=== PATIENT | female | born 1970 | race Caucasian/White ===

== ENCOUNTER 2022-05-14 10:44 | Outpatient (CLI) | payer BC, SELFPAY ==
[2022-05-14 14:34] LABS: Chloride* 100 mmol/L (96-114); Potassium* 4.1 mmol/L (3.6-5.1); Sodium* 137 mmol/L (135-149)
[2022-05-14 14:36] LABS: Cholesterol* 142 mg/dL (90-199)
[2022-05-14 14:37] LABS: Blood Urea Nitrogen* 22 mg/dL (7-30); Calcium* 9.2 mg/dL (8.4-10.6); Carbon Dioxide* 29 mmol/L (20-32); Creatinine* 1.1 mg/dL (0.5-1.5); Estimated Glomerular Filt Rate 60 ml/min; Glucose* 84 mg/dL (60-115); HDL Cholesterol* 62 mg/dL (>=50); LDL Cholesterol Calculated 71 mg/dL (<100); Triglycerides* 47 mg/dL (40-149)
== END 2022-05-14 10:45 | disposition home or self-care (01) ==
PROVIDERS: PCP Physician Assistant Medical; Visit Provider Physician Assistant Medical
DX: Z00.00 Encounter for general adult medical examination without abnormal findings (principal); N28.9 Disorder of kidney and ureter, unspecified; Z13.6 Encounter for screening for cardiovascular disorders
CPT/HCPCS: 80048; 80061; 87086

== ENCOUNTER 2022-07-13 08:10 | Outpatient (CLI) | payer BC, SELFPAY ==
--- NOTE | 2022-07-13 08:15 | CRLHL7_ITS ---
For Patients: As a result of the Century Cures Act, medical imaging exams and procedure reports are released immediately into your electronic medical record. You may view this report before your referring provider. If you have questions, please contact your health care provider. BILATERAL SCREENING MAMMOGRAM WITH COMPUTER-AIDED DETECTION AND TOMOSYNTHESIS TECHNIQUE: CC, MLO and Implant-displaced views were obtained. These mammographic images have been obtained using full-field digital technique. These mammographic images were interpreted with the benefit of computer-aided detection. Breast Tomosynthesis was used in this interpretation. COMPARISON FILM: 03/04/21, 02/09/20, 01/27/19. FINDINGS: The breasts are heterogeneously dense, which may obscure small masses IMPRESSION: There is no radiographic evidence for malignancy. ASSESSMENT: BI-RADS Category 2: Benign RECOMMENDATION: Routine screening mammogram in 1 year. A lay language report of this examination will be provided to the patient. Tone Hill M.D. Diagnostic Radiologist [email or web address] Transcribed: 2:47 p.priscilla stuart/Dictated by: Tone Hill MD @ 07/13/2022 12:18:00 PM (Electronically Signed)
== END 2022-07-13 08:11 | disposition home or self-care (01) ==
LOC: MAMMO 08:11
PROVIDERS: PCP Physician Assistant Medical; Visit Provider Registered Nurse
DX: Z12.31 Encounter for screening mammogram for malignant neoplasm of breast (principal); R92.2 Inconclusive mammogram
CPT/HCPCS: 77063; 77067

== ENCOUNTER 2023-11-19 13:13 | Outpatient (CLI) | payer BC, SELFPAY ==
--- OUTSIDE RECORDS SUMMARY | 2023-11-19 13:17 | XMS_ITS | Continuity of Care Document ---
Author Name Unknown Organization [facility] Address [address] [address] [place] [address] Phone Care Team Providers Care Patient Care Manager Name Role Phone Nhan Teran MD Unavailable Unavailable Advance Directives Directive Yes / No Effective Date File Name No Information Encounters Encounter Description Practice Location Reason(s) For Visit Diagnoses Date Provider Providers Copied on Encounter [facility], [address] [address], [place], [place], [id number], [place] tel:[phone] [facility] No Information Parul Justin. [address] [facility], [facility] [address], [place], [place], [id number], [place]. tel:[phone] Family History Family Member Type Diagnosis Age At Onset No Information Payers Payer name Insurance type Covered republican ID Authoriza tion(s) No Information Social History Type Description Quantity Date Captured Comments Sex Female Smoking Status No Information Chief Complaint And Reason For Visit No Information Reason For Referral Reason For Referral No Information History Of Present Illness Encounter Date Complaint History Of Prese nt Illness No Information Functional Status Date Functional Assessmen t No Information Instructions Date Instruction Additional Infor mation No Information Assessments Type Assessment Date No Information Patient Care Teams Name Effective Dates (start - stop) Status Members No Information
--- OUTSIDE RECORDS SUMMARY | 2023-11-19 13:17 | XMS_ITS | Data Portability ---
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 I also reviewed patients systemic health history, social and personal history and current medications and the complete documentation of the same is available for review in the patient's electronic health record. Based on the evaluation today, I do consider patient's symptoms to be consistent for a Temporomandibular joint disorder diagnosis Contributing factors identified and discussed include oral parafunctional habits, postural factors, coping with elevated stress. A panoramic radiograph was obtained in the office today and finding on the radiograph was discussed with the patient. This screening imaging revealed Bilateral TMJ adaptive remodeling. Overall, the dento-alveolar tissue appeared WNL. I reviewed some self care strategies with the patient today. This included the use of moist-heat therapy on a regular basis, eating a soft diet and chewing bilaterally simultaneously. the technique in keeping the jaw relaxed at all times with the teeth apart and tongue resting on the roof of the mouth was demonstrated and discussed. Patient was also educated on the significance of compliance to self-care today. I recommended evaluation and treatment with a physical therapist to improve pain-free range of motion and function. Physical therapy strategies of exercises and modalities and the value of those were discussed with the patient. Patient has an existing splint which I have encouraged her to continue using at this time. The focus with PT will be to improve pain-free ROM on the right side TMJ which appears to be chronic closed lock status with the left side having some ligament laxity concerns making it susceptible to joint instability. A prescription for Methocarbamol 500 mg two tablets at bedtime, was provided to the patient today. The risks and benefits associated with the prescribed medication was discussed with the patient today. Patient was asked to discontinue medication intake and return to clinic of significant side effects were noted from the medication. Total visit time 45 minutes. I spent 35 minutes on counselling and co-ordination of care. Not available 04/11/2018 14:15:30 04/27/2018 04/27/2018 Symptoms are consistent with TMD diagnoses. Patient is moderate complexity with 2 personal factors/comorbiditi es affecting the plan of care, moderate complexity decision making and an evolving clinical presentation. Examination yields 4+ affected structures, participation restrictions and/or functional limitations. The patient will benefit from PT to decrease pain and increase function with chewing, opening, yawning and tolerating dental work. Contributing factors include ligament laxity, muscle guarding, oral habits, stress and forward head posture. Treatment will include exercises to release muscle tension and increase strength and stability. Modalities to be used may include manual therapy, ultrasound and electrical stimulation. Frequency will be 1x/1-2 weeks for 6-8 weeks, tapering as able for a total of 8-12 visits over 3 months. Short term goals to be met in 4-6 weeks include: *Improve patient's awareness of muscle tension and muscle guarding habits to decrease pain. *Improve patient's awareness of neutral head, neck and jaw position to improve posture. *Improve patient's awareness of proper sleep positioning and ergonomics to decrease joint and muscle strain. *Improve jaw ROM to 30 mm IO and 5-7 mm lateral excursion without deviation, noise or increased pain due to improved jaw control. *Decrease pain and noise level by 50% due to improved muscle tension release and joint protection group home goals to be met in 3 months include: *Neutral head, neck and jaw posture 80% of the time to decrease postural muscle jaw strain *Improve jaw ROM to 35-40 mm IO and 7-10 mm lateral excursion without deviation, noise or pain to tolerate wide opening to yawn with ease *Decrease pain and noise level by 90% due to improved muscle stabilization and control with ADLs *Tifton with HEP and self care strategies to manage symptoms and discharge PT. *Pain free chewing with moderately hard diet 80% of the time due to improved jaw muscle endurance and control. sheri Not available 05/02/2018 14:09:41 05/04/2018 05/04/2018 Adjusted exercis es to ensure proper performance and avoid straining muscles. Did B US today for muscle release before manual work and joint mobilizations. Added tube work and isometric resistance to improve jaw control. Continue with all goals. Short term goals to be met in 4-6 weeks include: *Improve patient's awareness of muscle tension and muscle guarding habits to decrease pain. *Improve patient's awareness of neutral head, neck and jaw position to improve posture. *Improve patient's awareness of proper sleep positioning and ergonomics to decrease joint and muscle strain. *Improve jaw ROM to 30 mm IO and 5-7 mm lateral excursion without deviation, noise or increased pain due to improved jaw control. 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 *Pain free chewing with moderately hard diet 80% of the time due to improved jaw muscle endurance and control. sheri Not available 05/10/2018 13:51:08 05/20/2018 05/20/2018 I reinforced the self-care strategies and encouraged compliance with those. She was requested to bring her splint in for review to evaluate the effectiveness of the appliance. I reviewed outcomes with PT visits and discussed care with the PT provider. I reviewed the need for compliance with home exercises. I discussed medication management and she may take 500 mg of Methocarbamol in the daytime and 500 mg at bedtime to see if the effectiveness of the medication can be altered to gain daytime benefits with symptoms. Total visit time 20 minutes. I spent 15 minutes on counselling and co-ordination of care. Not available 05/20/2018 16:22:03 05/20/2018 05/20/2018 Restriction seem s to be more pterygoid-based today. Emphasized the importance of consistent heat use to relax the muscles; also encouraged intraoral ice to decrease pterygoid activation. Empty end feel with PROM opening (with fingers) - encouraged scissors stretch with breathing cue to release and stretch. Continue with jaw control exercises. Continue with all goals. Per Dr. Larry - consider ionto if pain continues with biting down. Short term goals to be met in 4-6 weeks include: *Improve patient's awareness of muscle tension and muscle guarding habits to decrease pain. *Improve patient's awareness of neutral head, neck and jaw position to improve posture. *Improve patient's awareness of proper sleep positioning and ergonomics to decrease joint and muscle strain. *Improve jaw ROM to 30 mm IO and 5-7 mm lateral excursion without deviation, noise or increased pain due to improved jaw control. 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 *Pain free chewing with moderately hard diet 80% of the time due to improved jaw muscle endurance and control. sheri Not available 05/20/2018 15:32:12 06/01/2018 06/01/2018 Gave resisted open/close for functional training. Much better ROM after TPR R intra and extra oral pterygoids and ice followed by scissors stretching. ROM improving overall with 35-38 mm opening after therapy. Add ionto next for the R TMJ per Dr. Larry. Continue with all goals. Short term goals to be met in 4-6 weeks include: *Improve patient's awareness of muscle tension and muscle guarding habits to decrease pain. *Improve patient's awareness of neutral head, neck and jaw position to improve posture. *Improve patient's awareness of proper sleep positioning and ergonomics to decrease joint and muscle strain. *Improve jaw ROM to 30 mm IO and 5-7 mm lateral excursion without deviation, noise or increased pain due to improved jaw control. 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 *Pain free chewing with moderately hard diet 80% of the time due to improved jaw muscle endurance and control. [email or web address] Not available 06/01/2018 17:44:01 06/08/2018 06/08/2018 I reinforced the self-care strategies and encouraged compliance with those. Splint fit was reviewed and Adjustments were made to the splint to improve fit and occlusal comfort. No further changes recommended with splint therapy at this time. Patient is encouraged to continue with multidisciplinary approach to her symptom management. Total visit time 20 minutes. I spent 15 minutes on counselling and co-ordination of care. Not available 06/15/2018 11:20:06 06/08/2018 06/08/2018 Did ionto R TMJ today - straighter opening after therapy. Good R TMJ mobility with distraction after ionto. Continue 1x/wk for 6 total sessions with increasing ionto dosage. Continue with all goals. Short term goals to be met in 4-6 weeks include: *Improve patient's awareness of muscle tension and muscle guarding habits to decrease pain. *Improve patient's awareness of neutral head, neck and jaw position to improve posture. *Improve patient's awareness of proper sleep positioning and ergonomics to decrease joint and muscle strain. *Improve jaw ROM to 30 mm IO and 5-7 mm lateral excursion without deviation, noise or increased pain due to improved jaw control. 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 *Pain free chewing with moderately hard diet 80% of the time due to improved jaw muscle endurance and control. [email or web address] Not available 06/08/2018 17:47:15 06/15/2018 06/15/2018 Did ionto again R TMJ today with ice - Continue 1x/wk for 6 total sessions with increasing ionto dosage next visit. Continue with all goals. Short term goals to be met in 4-6 weeks include: *Improve patient's awareness of muscle tension and muscle guarding habits to decrease pain. *Improve patient's awareness of neutral head, neck and jaw position to improve posture. *Improve patient's awareness of proper sleep positioning and ergonomics to decrease joint and muscle strain. *Improve jaw ROM to 30 mm IO and 5-7 mm lateral excursion without deviation, noise or increased pain due to improved jaw control. 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 *Pain free chewing with moderately hard diet 80% of the time due to improved jaw muscle endurance and control. [email or web address] Not available 06/15/2018 18:02:33 06/22/2018 06/22/2018 Did ionto again R TMJ today with ice - Continue 1x/wk for 6 total sessions with increasing ionto dosage next visit. Continue with all goals. Reviewed joint protection. Short term goals to be met in 4-6 weeks include: *Improve patient's awareness of muscle tension and muscle guarding habits to decrease pain. *Improve patient's awareness of neutral head, neck and jaw position to improve posture. *Improve patient's awareness of proper sleep positioning and ergonomics to decrease joint and muscle strain. *Improve jaw ROM to 30 mm IO and 5-7 mm lateral excursion without deviation, noise or increased pain due to improved jaw control. *Decrease pain and noise level by 50% due to improved muscle tension release and joint protection group home goals to be met in 3 months include: *Neutral head, neck and jaw posture 80% of the time to decrease postural muscle jaw strain *Improve jaw ROM to 35-40 mm IO and 7-10 mm lateral excursion without deviation, noise or pain to tolerate wide opening to yawn with ease *Decrease pain and noise level by 90% due to improved muscle stabilization and control with ADLs *Tifton with HEP and self care strategies to manage symptoms and discharge PT. *Pain free chewing with moderately hard diet 80% of the time due to improved jaw muscle endurance and control. [email or web address] Not available 06/22/2018 13:53:18 07/12/2018 07/12/2018 Did ionto again R TMJ today with ice - Continue 1x/wk for 6 total sessions with increasing ionto dosage next visit. Continue with all goals. Short term goals to be met in 4-6 weeks include: *Improve patient's awareness of muscle tension and muscle guarding habits to decrease pain. *Improve patient's awareness of neutral head, neck and jaw position to improve posture. *Improve patient's awareness of proper sleep positioning and ergonomics to decrease joint and muscle strain. *Improve jaw ROM to 30 mm IO and 5-7 mm lateral excursion without deviation, noise or increased pain due to improved jaw control. 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 *Pain free chewing with moderately hard diet 80% of the time due to improved jaw muscle endurance and control. [email or web address] Not available 07/12/2018 17:37:58 07/19/2018 07/19/2018 Did ionto again R TMJ today with ice, added TD stretching. Emphasized the importance of finger/knuckle stretching 4-6x/day and adding TD stretching with heat daily. RTC in 1 week to reassess; consider checking back in with Dr. Larry as well. Continue with all goals; intermittently meets STGs. Short term goals to be met in 4-6 weeks include: *Improve patient's awareness of muscle tension and muscle guarding habits to decrease pain. *Improve patient's awareness of neutral head, neck and jaw position to improve posture. *Improve patient's awareness of proper sleep positioning and ergonomics to decrease joint and muscle strain. *Improve jaw ROM to 30 mm IO and 5-7 mm lateral excursion without deviation, noise or increased pain due to improved jaw control. 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 *Pain free chewing with moderately hard diet 80% of the time due to improved jaw muscle endurance and control. sheri Not available 07/19/2018 17:37:02 07/26/2018 07/26/2018 ROM improved tod ay and patient reports that pain has been better in the last week. Overall today patient reports that she has met all short term goals. 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 Finished 6 ionto sessions with some improvement - patient will see Dr. Schaefer (transitioning care as Dr. Larry is leaving) to discuss POC. RTC as directed to continue with jail goals; may benefit from 6 more ionto sessions. Short term goals to be met in 4-6 weeks include: *Improve patient's awareness of muscle tension and muscle guarding habits to decrease pain. *Improve patient's awareness of neutral head, neck and jaw position to improve posture. *Improve patient's awareness of proper sleep positioning and ergonomics to decrease joint and muscle strain. *Improve jaw ROM to 30 mm IO and 5-7 mm lateral excursion without deviation, noise or increased pain due to improved jaw control. 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 *Pain free chewing with moderately hard diet 80% of the time due to improved jaw muscle endurance and control. sheri Not available 07/27/2018 10:11:54 09/26/2018 09/26/2018 Today I reviewed the diagnosis, contributing factors and treatment plan. I reinforced self-care strategies, home exercises and encouraged compliance. Daily home care was advised. I reviewed outcomes of care with physical therapy. I recommended continued care with home self-care. I discussed the patient's history and plan of action with the rendering team provider. She is using invisalign and NTI with full coverage appliance at night. Edna has been having neck pain now since 2-3 months which have not been evaluated previously. The pain is in atlas-axis region. I am recommending her to consult Pricila Rogers for neck evaluation. Today's total visit time was 25 minutes of which I spent 15 minutes on counselling and coordination of care. This may have included a review of diagnoses, contributing factors, home self-management, treatment plan, past diagnostic tests, reasonable expectations and limitations. [email or web address] Not available 09/30/2018 15:59:43 11/10/2018 11/10/2018 Edna is a pleasant 48 yo who is referred by Dr. Xavier for chronic neck pain and headaches that began gradually years ago. 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 [email or web address] Not available 11/10/2018 10:28:37 12/05/2018 12/05/2018 Improved jaw ROM overall. Will adjust PT focus to deep flexor stabilization and postural work to address her neck pain, TORRE and lack of cervical stabilization. Recommended heat on the neck in addition to the new stabilization exercises today. Adjusted goals as listed below to reflect the shift in priorities; patient has met all short term goals for the jaw. RTC as able - discuss transferring care to [facility], due to PT schedule changes upcoming. Short term goals to be met in 3-4 weeks include: *Improve patient's awareness of muscle tension and muscle guarding habits to decrease neck pain. *Improve patient's awareness of neutral head, neck and jaw position to improve posture. *Improve patient's awareness of proper sleep positioning and ergonomics to decrease joint and muscle strain. *Decrease TORRE pain by 50% due to improved muscle tension release and joint protection group home goals to be met in 3 months (may need to continue with a different PT) include: *Neutral head, neck and jaw posture 80% of the time to decrease postural muscle jaw strain *Improve cervical ROM to min to no limitation in all directions due to improved stabilization and decreased muscle tension. *Decrease neck and TORRE pain by 90% due to improved muscle stabilization and control with ADLs *Tifton with HEP and self care strategies to manage symptoms and discharge PT. sheri Not available 12/07/2018 11:25:52 12/15/2018 12/15/2018 Progressed deep flexor with with BPU using graded training. Went over sleep position, added foam roll stretch for suboccipital work. Reports feeling looser after manual release suboccipital and cervical paraspinal mm. RTC once more able - discuss transferring care to [facility], due to PT schedule changes upcoming. Goal review next. Short term goals to be met in 3-4 weeks include: *Improve patient's awareness of muscle tension and muscle guarding habits to decrease neck pain. *Improve patient's awareness of neutral head, neck and jaw position to improve posture. *Improve patient's awareness of proper sleep positioning and ergonomics to decrease joint and muscle strain. 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 *Decrease neck and TORRE pain by 90% due to improved muscle stabilization and control with ADLs *Tifton with HEP and self care strategies to manage symptoms and discharge PT. [email or web address] Not available 12/15/2018 13:32:36 12/27/2018 12/27/2018 Improving deep flexor endurance and control, though she continues to have fatigue and muscle tension. Added marching with PBU feedback for control. Also added cervical stretches with adjustments to isolate muscle tension in different areas. TORRE are much better. 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 Short term goals to be met in 3-4 weeks include: *Improve patient's awareness of muscle tension and muscle guarding habits to decrease neck pain. *Improve patient's awareness of neutral head, neck and jaw position to improve posture. *Improve patient's awareness of proper sleep positioning and ergonomics to decrease joint and muscle strain. 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 *Decrease neck and TORRE pain by 90% due to improved muscle stabilization and control with ADLs *[place] with HEP and self care strategies to manage symptoms and discharge PT. [email or web address] Not available 12/27/2018 19:12:52 Plan of Treatment Reminders Order Date Submit Date Provider Last Modified By Organization Details Last Modified Time Details Appointments None recorded. Lab None recorded. Referral mid-level referral 2018 019 [email or web address] Not available 9 15:59:19 physical therapist referral 2017 018 [place], Pravin Michel [facility], [address], [address], 8 16:30:27 Procedures None recorded. Surgeries None recorded. Imaging XR, orthopanto gram 2017 018 [place] Conn, [address], [place], [address], 8 16:32:16 Medication Orders methocarba mol 500 mg tablet 2017 018 [id number], [address] [place], [address], 8 11:46:48 methocarba mol 500 mg tablet 2017 018 [id number], [address] [place], [address], 14:15:34 Patient TargetsNo targets recorded. Patient Instructions Encounter Date Encounter Id Patient Instructions Last Modified By Organization Details Last Modified Time 12/27/2018 [id number] Plan: Progress deep flexor and scapular stabilization with pressure biofeedback, and dynamic LE progression. Consider cervical spine mobilizations if indicated; assess further in the future. Patient will transition to new PT (likely will review goals and reset them as needed next). [email or web address] Not available 12/27/2018 19:13:48 12/15/2018 [id number] Plan: Progress deep flexor and scapular stabilization with pressure biofeedback, adding TA work if needed and neck stretching as needed. Consider cervical spine mobilizations if indicated; assess further in the future. [email or web address] Not available 12/15/2018 10:04:12 12/05/2018 [id number] Plan: Progress deep flexor and scapular stabilization with pressure biofeedback, adding TA work if needed and neck stretching as needed. Consider cervical spine mobilizations if indicated; assess further in the future. [email or web address] Not available 12/07/2018 11:26:41 07/26/2018 [id number] Plan: Discuss [facility] TMJ specialist regarding POC. Consider 6 more ionto sessions? [email or web address] Not available 07/27/2018 10:12:10 07/19/2018 [id number] Plan: continue with ionto R TMJ, check TD stretch, return to joint mobilizations if needed. Progress exercises as able, review POC (with Dr. Larry as needed). [email or web address] Not available 07/19/2018 17:37:31 07/12/2018 [id number] Plan: continue with ionto R TMJ, return to mobilizations and progress exercises as able. [email or web address] Not available 07/12/2018 17:36:08 06/22/2018 [id number] Plan: continue with ionto R TMJ, return to mobilizations and progress exercises as able. [email or web address] Not available 06/22/2018 13:53:37 06/15/2018 [id number] Plan: continue with ionto R TMJ ekahnert Not available 06/15/2018 18:02:41 06/08/2018 [id number] Self Care for TMD Not availab le 06/15/2018 11:20:34 06/08/2018 [id number] Plan: Continue R TMJ ionto with increasing dosage, continue with joint distraction as well. [email or web address] Not available 06/08/2018 17:47:46 06/01/2018 [id number] Plan: R TMJ iont o next, continue intraoral work and scissors stretch as needed. [email or web address] Not available 06/01/2018 17:44:18 05/20/2018 [id number] Plan: Continue with B US and MFR followed by intraoral work (vs. mobilizations) if helpful. Check #6A and tube ex for control. Continue with muscle focus (pterygoids) vs. joint - though ok to try ionto if indicated. [email or web address] Not available 05/20/2018 15:32:45 05/04/2018 [id number] Plan: Continue with B US and MFR followed by mobilizations if helpful. Check #6A and tube ex for control. Progress postural exercises, add cervical stretches eventually Go over sleep position next. [email or web address] Not available 05/10/2018 13:51:33 04/27/2018 [id number] Plan: Continue with US (consider B US next) and MFR if helpful. Add #6A, tube ex for control. Progress postural exercises, add cervical stretches eventually Go over sleep position next. [email or web address] Not available 05/02/2018 14:08:43 04/11/2018 [id number] Self Care for TMD Not availab le 04/11/2018 14:15:27 Reason for Referral Physical Therapist Referral for Articular disc disorder of temporomandibular joint Referring Physician: [facility], [phone] Encounter Date: 04/11/2018 Mid-level Referral for Neck pain Referring Physician: [facility], Encounter Date: 09/26/2018 Results Created Date Observation Date Name Description Value Unit Range Abnormal Flag LastModifiedBy Organization Detail LastModifiedTime 04/11/20 18 XR, ortho panto gram No observ ation record ed. Not Available 04/28/2018 16:30:09 Result Notes None recorded. 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 Janice carrillo [facility] 8 13:58:41 Myofascial pain Active 2017 masticatory and cervical muscles [place], [place] [address] [facility] [address], [place], [address], [facility] 9 15:59:34 Arthralgia of temporomandibul ar joint Active 2017 Janice carrillo [facility] 8 13:59:33 Chronic neck pain Active 2018 Pricila Ken lorena [facility] 9 10:15:33 Chronic tension-type headache Active 2018 Pricila carrillo [facility] 9 10:15:47 Problem Notes None recorded. Procedures Surgical History Date Name Laterality Status Provider Name and Address Organization Details Recorded Time 12/28/19 19 42756: Therapeutic Exercise completed Lilo carrillo [facility] 12/27/2018 11:13:37 12/28/19 19 88250: Neuromuscular Re-Education completed Lilo carrillo [facility] 12/27/2018 11:13:37 12/16/19 19 82426: Therapeutic Exercise completed Lilo carrillo [facility] 12/15/2018 10:04:12 12/16/19 19 [id number]: Neuromuscular Re-Education completed Lilo carrillo [facility] 12/15/2018 10:04:12 12/06/19 19 88322: Therapeutic Exercise completed Lilo carrillo [facility] 12/05/2018 11:06:23 12/06/19 19 07621: Neuromuscular Re-Education completed Lilo carrillo [facility] 12/07/2018 11:19:38 07/26/19 19 88235: Iontophoresis completed Lilo carrillo [facility] 07/26/2018 17:00:45 07/26/19 19 28858: Therapeutic Exercise completed Lilo carrillo [facility] 07/26/2018 17:00:45 07/19/19 19 16458: Iontophoresis completed Lilo carrillo [facility] 07/19/2018 17:35:49 07/19/19 19 13087: Therapeutic Exercise completed Lilo carrillo [facility] 07/19/2018 17:35:43 07/12/19 19 22899: Iontophoresis completed Lilo carrillo [facility] 07/12/2018 17:36:07 06/22/20 18 08048: Iontophoresis completed Lilo carrillo [facility] 06/22/2018 13:53:02 06/15/20 18 01151: Iontophoresis completed Lilo carrillo [facility] 06/15/2018 18:01:05 06/08/20 18 20912: Iontophoresis completed Lilo carrillo [facility] 06/08/2018 10:55:56 06/08/20 18 81753: Therapeutic Exercise completed Lilo carrillo [facility] 06/08/2018 10:38:42 06/01/20 18 95115: Therapeutic Exercise completed Lilo carrillo [facility] 06/01/2018 10:42:33 06/01/20 18 80036: Manual Therapy completed Lilo carrillo [facility] 06/01/2018 10:42:33 05/20/20 18 70368: Ultrasound (1:1) completed Lilo carrillo [facility] 05/20/2018 10:41:15 05/20/20 18 15266: Therapeutic Exercise completed Lilo carrillo [facility] 05/20/2018 10:41:15 05/20/20 18 86401: Manual Therapy completed Lilo carrillo [facility] 05/20/2018 10:41:15 05/04/20 18 16781: Ultrasound (1:1) completed Lilo carrillo [facility] 05/05/2018 18:11:37 05/04/20 18 54506: Therapeutic Exercise completed Lilo carrillo [facility] 05/04/2018 10:34:33 05/04/20 18 96027: Manual Therapy completed Lilo carrillo [facility] 05/10/2018 13:50:05 04/27/20 18 16077 - PT Eval Moderate Complexity completed Lilo carrillo [facility] 04/27/2018 12:04:57 04/27/20 18 85464: Ultrasound (1:1) completed Lilo carrillo [facility] 05/02/2018 14:04:31 04/27/20 18 34234: Therapeutic Exercise completed Lilo carrillo [facility] 04/27/2018 12:04:57 Joint Replacement completed Sunny carrillo [facility] 04/11/2018 13:36:32 [place] Teeth Extraction completed Sunny carrillo [facility] 04/11/2018 13:36:41 Other completed Sunny carrillo [facility] 04/11/2018 13:36:53 ENT/Sinus Surgery completed Miky carrillo [facility] 04/11/2018 13:52:14 Imaging Results Imaging Date Name Status LastModified by Organization Details LastModified Time 04/11/2018 XR, orthopantogram completed Inform ation not available 04/28/2018 16:30:09 Procedure Notes None recorded. Medical Equipment None Reported. Allergies Allergen ID Allergen Name Allergen Category Reaction Reaction Severity Criticality Documentation Date Start Date Code Code System Note Provider Name and Address Organization Details Recorded Time 76447 codeine medicatio n Not available Not available Not available 04/11/2018 2670 RxDominic carrillo [facility] 8 13:32:03 73446 Erythroci n medicatio n Not available Not available Not available 04/11/2018 95383 3 James carrillo [facility] 8 13:32:36 Medications Name Sig Start Date Stop Date Status Note LastModified by Organization Details LastModified Time methocarbamo l 500 mg tablet TAKE 2 TABLETS BY MOUTH EVERY DAY AT BEDTIME active 9: pt. MAY try 3 tabs (750m g) at bedti me. Not Available Not Available Not Available valacyclovir 1 gram tablet active Not Available Not Available Not Available tramadol 50 mg tablet 09/26 completed Not Available Not Available Not Available ketorolac 10 mg tablet 09/26 completed Not Available Not Available Not Available cephalexin 500 mg capsule 09/26 completed Not Available Not Available Not Available gabapentin 300 mg capsule 09/26 completed Not Available Not Available Not Available hydroxyzine HCl 25 mg tablet 09/26 completed Not Available Not Available Not Available mupirocin 2 % topical ointment 09/26 completed Not Available Not Available Not Available methylpredni solone 4 mg tablets in a dose pack 09/26 completed Not Available Not Available Not Available celecoxib 100 mg capsule Take 1 capsule every day by oral route. 09/26 completed Not Available Not Available Not Available ondansetron 4 mg disintegrati ng tablet 09/26 completed Not Available Not Available Not Available doxycycline hyclate 100 mg tablet 09/26 completed Not Available Not Available Not Available oxycodone 5 mg tablet 09/26 completed Not Available Not Available Not Available hydroxyzine pamoate 25 mg capsule 09/26 completed Not Available Not Available Not Available [place] 3 active Not Available Not Avail able Not Available Hair,Skin and Nails active Not Available Not Available No t Available Vitals Date Recorded Body height Body mass index (BMI) Body weight Heart rate Systolic blood pressure Diastolic blood pressure Provider Name and Address Organization Details Last Updated DateTime 8 154.94 cm 20.2 kg/m2 49957.3 8 g 79 /min 120 mm[Hg] 80 mm[Hg] Sunny Pulido [facility] 8 13:31:00 Date Recorded Body height Provider Name an d Address Organization Details Last Updated DateTime 05/20/2018 154.94 cm Miky Hung [facility] 05/20/2018 11:28:49 Date Recorded Body height Provider Name an d Address Organization Details Last Updated DateTime 06/08/2018 154.94 cm Sunny Pulido [facility] 06/08/2018 11:07:37 Date Recorded Body height Systolic blood pressure Diastolic blood pressure Provider Name and Address Organization Details Last Updated DateTime 09/26/2018 154.94 cm 95 mm[Hg] 64 mm[Hg] Miky Hung [facility] 09/26/2018 12:23:29 Date Recorded Body height Body mass index (BMI) Body weight Heart rate Systolic blood pressure Diastolic blood pressure Provider Name and Address Organization Details Last Updated DateTime 9 154.94 cm 20.2 kg/m2 83759.3 8 g 76 /min 110 mm[Hg] 76 mm[Hg] Ruby Roach [facility] 9 09:20:00 Social History Question Answer Notes LastModified by Organizat ion Details LastModified Time Tobacco Smoking Status Never Smoker Sunny carrillo [facility] 04/11/2018 13:34:00 What Is Your Level Of Alcohol Consumption? Occasional Information not available 04/11/2018 Auto Related Injury? No Information not available 04/11/2018 What Is Your Level Of Caffeine Consumption? Moderate Information not available 04/11/2018 Are You Currently Employed? Yes Information not available 04/11/2018 Currently No Information not available 04/11/2018 What Type Of Diet Are You Following? 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 With Others Information not available 04/11/2018 Marital Status Informatio n not available 04/11/2018 What Number Best Describes Your Pain On Average In The Past Week? (0=no Pain, 10=pain As Bad As You Can Imagine) 8 Information not available 04/11/2018 What Number Best Describes How, During The Past Week, Pain Has Interfered With Your Enjoyment Of Life? (0=does Not Interfere, 10= Completely Interferes) 5 Information not available 04/11/2018 What Was The Date Of Your Most Recent Tobacco Screening? 11/10/2018 Information not available 01/26/2019 If Injured, Is Litigation Ongoing? No Information not available 04/11/2018 General Stress Level Medium Information not available 04/11/2018 Do You Use Any Illicit Or Recreational Drugs? No Information not available 04/11/2018 Work Related Injury? No Information not available 04/11/2018 Sex: Female Functional Status Question Answer Note LastModified by Organization D etails LastModified Time What is your exercise level? Heavy Information not available 04/11/2018 Mental Status None recorded. Family History Relationship Description Onset Age of this Age Resolved Age Notes Father Arthritis Medical History Condition Response Coronary Artery Disease N Other N Gout N Chronic fatigue syndrome N Hyperthyroidism N Premenstrual syndrome (PMS) N MRSA N Head Trauma/Injury N Emphysema N Irritable bowel syndrome N Glaucoma N Lung Disease N COPD N Hypothyroidism N Depression N Pneumonia N Pacemaker N Obstructive Sleep Apnea N Anxiety Disorder N Autoimmune disease N Muscle, Joint, or Bone Problems Y Vision or Eye Problems N Arthritis Y Serious Illness or Injuries N Acid Reflux (GERD) N Cancer N Stroke N Eating disorder N Neck Injury N Back Injury N High Cholesterol N History of chemotherapy N Neurologic Disorder N Liver Disease N Organ Transplant N Rheumatoid Arthritis N Headaches Y Fibromyalgia N Kidney Disease N Allergies/Hayfever Y Post traumatic stress disorder (PTSD) N Parkinson's Disease N Migraines N Brain Tumors N Anemia N Multiple Sclerosis N Immune System Disorder N Meningitis N Pancreatic disease N Heart Attack ([place]) N Stomach Ulcers N Back pain N Diabetes N Bleeding Disorder N Seizures/Epilepsy N Sjogren's syndrome N Tuberculosis N AIDS/HIV N History of radiation therapy N Hyperlipidemia N Dementia N Asthma N Physical or sexual abuse N Substance Abuse N Peripheral Vascular Disease N Psoriasis N Reflux/GERD N Mental Problems N Vertigo N Sleep Disorder N Aneurysm N Hepatitis N Heart Disease N Neuropathy N Pulmonary Embolism N Hypertension Y Osteoporosis N Gynecological HistoryNo gynecological history recorded. Obstetrics History GPAL:G 0 P 0 0 0 0 Immunizations Vaccine Type Date Status Provider Name and Address Organization Details Recorded Time influenza, injectable, quadrivalent 03/31/2018 completed [place] [facility] 04/11/2018 13:33:25 Past Encounters Encounter ID Performer Location Encounter Start Date Encounter Closed Date Diagnosis/Indication Diagnosis SNOMED-CT Code [id number] Janice Laron D[place] [address] [place] [address] 04/11/2018 13:05:43 04/11/2018 13:47:28 Arthralgia of temporomandibular joint 00942392 Articular disc disorder of temporomandibular joint 78526596 Myofascial pain 95631985 9 [id number] Lilo Bentley[address] [place] [id number] 04/27/2018 11:59:32 04/27/2018 17:36:11 Myofascial pain 707038834 Arthralgia of temporomandibular joint 26376631 Articular disc disorder of temporomandibular joint 34389012 [id number] Lilo Tai [address] [place] [address] 05/04/2018 10:28:22 05/04/2018 17:41:36 Myofascial pain 209048882 Arthralgia of temporomandibular joint 91470743 Articular disc disorder of temporomandibular joint 98665396 [id number] Lilo Huang [place] [address] [place], [place] [address] 05/20/2018 10:37:01 05/20/2018 15:23:50 Myofascial pain 962887147 Arthralgia of temporomandibular joint 04749854 Articular disc disorder of temporomandibular joint 15855530 [id number] Janice Laron DDS [place] [address] [place], [place] [address] 05/20/2018 10:37:01 05/20/2018 15:23:50 Myofascial pain 308712251 [id number] Lilo Huang [place] [address] [place] [address] 06/01/2018 10:36:10 06/01/2018 13:59:00 Myofascial pain 156842689 Arthralgia of temporomandibular joint 54169056 Articular disc disorder of temporomandibular joint 58444172 [id number] Lilo Huang [place] [address] [place] [id number] 06/08/2018 10:33:48 06/08/2018 15:32:25 Myofascial pain 933307942 Arthralgia of temporomandibular joint 44537448 Articular disc disorder of temporomandibular joint 25381499 [id number] Janice Laron DDS [place] [address] [place] [address] 06/08/2018 10:37:27 06/08/2018 14:50:21 Myofascial pain 640378698 Arthralgia of temporomandibular joint 36276418 Articular disc disorder of temporomandibular joint 91565064 [id number] Lilo Baughsuraj Gallegos e [address] [place] [address] 06/15/2018 13:28:43 06/15/2018 18:25:36 Myofascial pain 862925415 Arthralgia of temporomandibular joint 35472781 Articular disc disorder of temporomandibular joint 18917670 [id number] Lilo Huang [place] [address] [place] [address] 06/22/2018 13:31:55 06/22/2018 13:58:34 Myofascial pain 754233243 Arthralgia of temporomandibular joint 30969345 Articular disc disorder of temporomandibular joint 61623887 [id number] Lilo Huang [place] [address] [place] [id number] 07/12/2018 16:48:40 07/12/2018 17:47:34 Myofascial pain 091811426 Arthralgia of temporomandibular joint 52774454 Articular disc disorder of temporomandibular joint 12546721 [id number] Lilo Huang [place] [address] [place] [address] 07/19/2018 16:37:54 07/20/2018 08:11:38 Myofascial pain 192197675 Arthralgia of temporomandibular joint 23300414 Articular disc disorder of temporomandibular joint 69357097 [id number] Lilo Huang [place] [address] [place] [address] 07/26/2018 16:59:26 07/27/2018 10:29:05 Myofascial pain 608623269 Arthralgia of temporomandibular joint 94090889 Articular disc disorder of temporomandibular joint 95872422 [id number] ANICETO XAVIER BDS, [place] [address] [place] [address] 09/26/2018 12:04:31 09/26/2018 13:00:46 Myofascial pain 438890549 Arthralgia of temporomandibular joint 96532001 Articular disc disorder of temporomandibular joint 32286716 Neck pain 03010647 [id number] Pricila Ken [place] [address] [place] [address] 11/10/2018 09:02:55 11/10/2018 10:13:33 Myofascial pain 910976771 Chronic neck pain 573435 3126166 Chronic te nsion-type headache 101970089 [id number] Lilo Tai [address] [place] [address] 12/05/2018 11:02:45 12/05/2018 11:42:54 Myofascial pain 492840827 Chronic neck pain 083889 4222835 Chronic te nsion-type headache 392248110 [id number] Lilo Gallegos e [address] [place] [address] 12/15/2018 09:58:40 12/15/2018 11:27:18 Myofascial pain 940694957 Chronic neck pain 896393 8627413 Chronic te nsion-type headache 742041021 [id number] Lilo Gallegos e [address] [place] [address] 12/27/2018 11:10:06 12/27/2018 12:05:31 Myofascial pain 961034534 Chronic neck pain 421950 6987117 Chronic te nsion-type headache 760375871 Health Concerns Section Related Observation LastModified by Organization Detai ls LastModified Time None Recorded Concern Status LastModified by Organization Details LastModified Time None Recorded Advance Directives Directive None Recorded Payers Encounter Date Sequence Insurance Name Policy Number Policy Martinez Covered Member ID Martinez Member ID Guarantor Name 12/27/2018 1 [facility] [id number] Edna Wood [id number] Edna Wood 12/15/2018 1 [employer] [id number] Edna K Vanbellinger [id number] Edna Vanbellinger 12/05/2018 1 [employer] [id number] Edna K Vanbellinger [id number] Edna Vanbellinger 11/10/2018 1 [employer] [id number] Edna K Vanbellinger [id number] Edna Vanbellinger 09/26/2018 1 [employer] [id number] Edna K Vanbellinger [id number] Edna Vanbellinger 07/26/2018 1 [employer] [id number] Edna K Vanbellinger [id number] Edna Vanbellinger 07/19/2018 1 [employer] [id number] Edna K Vanbellinger [id number] Edna Vanbellinger 07/12/2018 1 [employer] [id number] Edna K Vanbellinger [id number] Edna Vanbellinger 06/22/2018 1 [employer] [id number] Edna K Vanbellinger [id number] Edna Vanbellinger 06/15/2018 1 [employer] [id number] Edna K Vanbellinger [id number] Edna Vanbellinger 06/08/2018 1 [employer] [id number] Edna K Vanbellinger [id number] Edna Vanbellinger 06/08/2018 1 [place] [id number] Edna K Vanbellinger [id number] Edna Vanbellinger 06/01/2018 1 [employer] [id number] Edna K Vanbellinger [id number] Edna Vanbellinger 05/20/2018 1 [employer] [id number] Edna K Vanbellinger [id number] Edna Vanbellinger 05/20/2018 1 [employer] [id number] Edna K Vanbellinger [id number] Edna Vanbellinger 05/04/2018 1 [employer] [id number] Edna K Vanbellinger [id number] Edna Vanbellinger 04/27/2018 1 [employer] [id number] Edna K Vanbellinger [id number] Edna [place] 04/11/2018 1 [employer] [id number] Edna Wood [id number] Edna Wood Notes Date Note Type Note Provider Name and Address Organization Details Recorded Time 04/11/2018 text/html HPI Notes: Patidave nt reports jaw pain on the right-side , which startedyears ago. The pain is located in the angle of the mandible region. Patient reports the severity of pain as 4-7 on a scale of 0-10 and describes the quality of the pain assharp, burning. The pain is recurrent. Associated symptoms include limited mouth opening,ear pain, headache, jaw jiont noises. Contextual factors include trauma. Aggravating factors include eating, teeth clenching, yawning. Patient has tried OTC meds -advil to alleviate symptoms, which has not been effective. Past treatment includes self-care. [facility] 04/11/2018 15:36:37 04/27/2018 text/html HPI Notes: Long history of R TMJ pain and restriction. The pain has flared in the last 1.5 years. Wears Invisalign retainer (has had it for 3 years) and an upper mouthguard every night. Aware of clicking the teeth together a lot, then had an incident waking while clenching hard about 1.5 years ago when the pain increased. Pain is constant and increases with activities - eating, yawning, chewing, wide opening, dental work, oral hygiene toward the back. Has been avoiding hard/crunchy/chewy foods. No other chewing habits - pain with chewing gum, so she hasn't done that for the last 1.5 months. Hasn't tried heat or ice, no change with the muscle relaxant since starting it after Dr. Larry's visit. Has one kidney. Takes Celebrex 1-2x/day for her knee. Was taking an OTC sleep aid (like Tylenol pm) which seemed to help her. Sleep is poor now because of the knee, and she feels that the poor sleep affects her jaw. Sleeping on her R side but she moves around a lot through the night. Neck is more sore and tired currently - has stiffness and tightness, difficulty with end range rotation. 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 Has 4 kids, including triplets (in 4th grade). Long history of clicking B. Some ear pain, TORRE tension in the B temples dull and daily. Goals include decreased pain, decreased muscle tension, independent management, eat a normal diet. Had L knee replaced 3 months ago - still doing PT for it once per week and it's going well. Going downhill or down steps is harder. Panorex shows Bilateral TMJ adaptive remodeling. Per Dr. Larry: The focus with PT will be to improve pain-free ROM on the right side TMJ which appears to be chronic closed lock status with the left side having some ligament laxity concerns making it susceptible to joint instability. Personal factors and/or comorbidities affecting the plan of care include ligament laxity and recent knee replacement with residual pain and discomfort possibly triggering clenching. Functional limitations and participation restrictions include difficulty chewing, opening, yawning and tolerating dental work. SHARRI Stark [facility] 05/02/2018 14:10:05 05/04/2018 text/html HPI Notes: Doing the postural exercises - feeling some soreness at the base of the skull and at the back of the neck in the upper C-spine. Jaw opening seems better. Jaw pain still flares with biting hard foods, but with soft foods the pain is no more than 6/10. The neck exercise triggers some soreness, but the jaw exercises trigger some pain. SHARRI Stark [facility] 05/10/2018 13:51:41 05/20/2018 text/html HPI Notes: Feels the jaw is opening straighter and the opening is getting a bit better, but the pain is still there with function. Getting tired of not being able to eat. Limiting to softer and smaller foods. Wonders if the sleep position is related? Sleeping on the R side. Able to control with less popping. Hasn't been doing heat at home. Feels her sleep position is painful. Using the muscle relaxant at night. SHARRI Stark [facility] 05/20/2018 15:33:03 05/20/2018 text/html HPI Notes: Patie nt reports that the jaw pain, located on the right-side has not changed since the previous visit. Patient reports the quality of this pain as dull ache, . Patient rates the pain severity as 6 on a scale of 0 to 10. Aggravating factors include chewing, yawning, opening to wide, talking .Alleviating factors include splint therapy, PT.Patient is currently engaged in treatments including self-care & PT. Patient has seen the physical therapist 4 times. SHARRI Cruz DDS [facility] 05/20/2018 16:22:12 06/01/2018 text/html HPI Notes: Had a procedure to improve the L knee flexion. Knee pain is increased, and Oxycodone helps but sleep isn't very good. It feels like the medication revs her up and she can do more because the knee pain is less. Taking Celebrex and/or Ibuprofen during the day. The jaw still hurts, but the scissors stretch has been helpful. It seems to be opening better. SHe can tell her neck is tighter since the knee procedure. Pain continues with biting down. SHARRI Stark [facility] 06/01/2018 17:44:31 06/08/2018 text/html HPI Notes: Seems to be opening farther, pain continues with biting down. Brought Invisalign and mouthguard for Dr. Larry to look at today. Will be doing ionto today. SHARRI Stark [facility] 06/08/2018 17:48:10 06/08/2018 text/html HPI Notes: Jody rico is here to review the fit of her maxillary splint, along with her invisalign retainer. She has been continuing care with physical therapy and has noticed progressive improvements. She is aware of the significant aggravating factors for her jaw pain and will continue to work with self-care and PT exercises at this time. Patient is currently taking the muscle relaxant ad has noticed that this has been helpful in addressing her symptoms, Patient reports that the jaw pain, located on the right-side .Patient rates the pain severity as 6 on a scale of 0 to 10. SHARRI Cruz DDS [facility] 06/15/2018 11:20:47 06/15/2018 text/html HPI Notes: Came in for ionto only today. No problems after the last visit. Sore today - busy, rushing. Trying to remember to do exercises. Lilo carrillo [facility] 06/15/2018 18:03:24 06/22/2018 text/html HPI Notes: Came in again for ionto only today. Having some noise and soreness with chewing. Opening is still restricted with pain beyond that point. Lilo carrillo [facility] 06/22/2018 13:54:02 07/12/2018 text/html HPI Notes: Ionto only visit today. Was feeling better for awhile, but then the pain and tightness seemed to increase again. L eye injury may be causing some guarding/clenching. Doing exercises. Fatigues with chewing - lots of food and social situations over the holidays that seemed to trigger the jaw. Lilo carrillo [facility] 07/12/2018 17:38:10 07/19/2018 text/html HPI Notes: Thoug ht it was feeling a little better, now feels tight and painful again. Having grinding on the L with chewing. Doing exercises some - hasn't been as consistent with them as she'd like. Hasn't done much heat. Feels tight with trying to open. Keeping the tongue up all the time and it helps to stabilize the jaw. Lilo carrillo [facility] 07/19/2018 17:37:43 07/26/2018 text/html HPI Notes: The j aw is better than at the last visit, but it feels very stiff and tight. Has been doing the heat and sticks consistently - able to increase the range with it. L sided clicking happens on and off. Chewing on the R feels better. Getting frustrated in general with her slow progress for knee rehab along with the jaw. Doing the jaw rotation exercise. Flossing has gotten better, though there is still some soreness, especially with flossing on the bottom. Overall she feels there has been 50% overall improvement. Wondering what the next step is? Lilo carrillo [facility] 07/27/2018 10:12:19 09/26/2018 text/html HPI Notes: Martinedave trisha presents today for follow-up. They report jaw symptoms which are worsened since the previous visit. Symptoms and pertinent information along with prior data was reviewed, updated and documented in the patient history of present illness. Patient rates the pain intensity as 3-8 on a scale of 0 to 10. Patient is engaged in active treatment at this time. Pain has only been right sided, she has improved since her last visit. Her jaw is not very clicky now but she does notice grinding. Her neck is getting worse. She is unsure to what was the cause of the flare-up. Pain is mainly on the right side. Her head feels very heavy. She did have a knee replacement last year as well. She does use invisalign at night. 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 Stress is high with work. She is not sleeping well at night. Her neck is uncomfortable. ANICETO XAVIER BDS, [place] [address], [place], [address], [facility] 09/30/2018 16:00:20 11/10/2018 text/html HPI Notes: Heada mckinley Reported by patient. Onset/Timing: Onset yrs ago--no manager of change the yrs. Location: generalized; bilateral; frontal; temporal; base of head Quality: dull/aching/boring; pressure; Throbs rarely. Severity: pain level 3-7/10; current pain 3/10; higher intensity: occasionally. 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 Onset/Timing: Onset: yrs ago; worsened ~ 1 yr ago when jaw pain flared. 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 No injury hx. No hypermobility Location: occipital; posterior; no radiation to shoulders or arms. Quality: strong ache, gets stronger up in the occipital area Severity: pain level 3-7/10; current pain 5/10 Duration: constant Aggravating Factors: sleep, stress, activity Alleviating Factors: sleep; ice; quiet; massage; chiropractor (not seeing now) Notes: Head feels heavy R>L. Imaging: Neck xrays (per chiropractor) yrs ago: neck alignment issue. MEDS (current) Methocarbamol: taking occasionally: no change in pain. No SE's. Edna is here for eval of her neck pain and headaches. Neck pain cont for years; chiro care. Advil 2tabs qd; weaned herself off. Headaches are usually in her temples, ache, intense. Muscle relaxant hasnt helped. Jaw pain not much improved since last visit to clinic. only has her Right Kidney. 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 Sleep 2 hrs solid, 6-7 hrs. Interrupted. Caffeine: 16 oz/day. Pricila carrillo [facility] 11/10/2018 10:57:05 12/05/2018 text/html HPI Notes: Overa ll the jaw is opening farther, though she has the noise and crunching with opening wide. Has fatigue with prolonged chewing, especially salads. Still feels her head is heavy. Trying to sleep with a roll behind her head. Having TORRE at the base of the skull and the forehead. Aware of bite symptoms at times, but mostly she wants to focus on the neck pain, TORRE and difficulty supporting her head. Has been told by a chiropractor she has a reverse curve in her neck and she is concerned about it. Lilo carrillo [facility] 12/07/2018 11:27:15 12/15/2018 text/html HPI Notes: Doing the chin nod work pretty consistently. Struggles with pillow use at home - towel roll feels ok at first but then gets tight. Low back has been bothering her lately too. Lilo carrillo [facility] 12/15/2018 13:32:52 12/27/2018 text/html HPI Notes: Continues to work on her sleeping position - still struggling with pillows and allowing her neck muscles to release. Having trouble releasing the muscle tension. Has been back in the gym - feels like the R UT is tight today as a result. No TORRE pain - some neck pain continues. She has been working on the graded neck training. Still feels like her head is too heavy. SHARRI Stark - [facility] 12/27/2018 19:13:59 OBGyn Episode No OBEpisode recorded.
--- OUTSIDE RECORDS SUMMARY | 2023-11-19 13:17 | XMS_ITS | Clinical Summary ---
Author Name Unknown Organization [facility] Address [address] [address] Care Team Providers Care Hose Inspector And Patcher Name Role Phone Unassigned, Provider Primary Care Provider Unava ilable Source Comments You are receiving this document as you are listed as the primary care provider,follow-up provider, or the patient has been referred to you for consultation.This is in compliance with the Medicare and[facility] EHR Incentive Program,which states Providers who transition their patient to another setting of careor provider of care or refers their patient to another provider of care shouldprovide summary care record for each transition of care or referral. [facility] Allergies Active Allergy Reactions Criticality Noted Date Comments Codeine 05/19/2004 PN: LW Reaction: Itching, Pruritis Erythromycin 05/19/2004 PN: LW Reaction: GI Upset Phenazopyridine 09/23/2004 PN: LW Reaction: UNK Medications Medication Sig Dispensed Refills Start Date End Date Status progesterone micronized (AKA PROMETRIUM) 200 MG capsule Take 1 capsule by mouth. 05/19/2004 Active valACYclovir (AKA VALTREX) 1 G tablet Take 1 tablet by mouth 2 times daily. 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 SUPERVISOR Height 154.9 cm (5' 1) 08/20/2020 11:12 AM UNDERWRITING CLERKS SUPERVISOR Body Mass Index 20.78 08/20/2020 11:12 AM UNDERWRITING CLERKS 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 Plan of Treatment Health Maintenance Due Date Last Done Comments Cervical Cancer Screening Due 1969 Colon Cancer Screening Plan Due 1969 Hep C Screening (Preventive Services) 1969 Mammogram 1969 HIV Screening (Preventive Services) 1985 Adult Preventive Visit 10/05/1987 HepB (1) 1988 Cholesterol 2014 DTaP/Tdap/Td (3 - Tdap) 03/05/2022 03/05/20 12, 10/23/2010, 05/21/2003 COVID-19 Vaccine ( season) 2023 10/02/2020, 08/29/2020 Influenza (Season Ended) 2024 020, 03/30/2019, 03/31/2018, Additional history exists Zoster/Shingles Completed 03/08/2020, 12/15/2019 HepA Aged Out No longer eligi ble based on patient's age to complete this topic Hib Aged Out No longer eligi ble based on patient's age to complete this topic IPV (Polio) Aged Out No longer eligi ble based on patient's age to complete this topic MCV4 Aged Out No longer eligi ble based on patient's age to complete this topic Pneumococcal Aged Out No longer eligi ble based on patient's age to complete this topic Care Teams Hose Inspector And Patcher Relationship Specialty Start Date End Date Unassigned, Provider [address] [place] [address] PCP - General 12/28/01
--- OUTSIDE RECORDS SUMMARY | 2023-11-19 13:17 | XMS_ITS | Clinical Summary ---
Author Name Unknown Organization [facility] Address [place], [place] [address] Care Team Providers Care Smoking Pipe Maker Name Role Phone [facility] Primary Care Provider Unavailabl e Allergies Active Allergy Reactions Criticality Noted Date Comments Codeine Itching 01/16/2005 Erythromycin 01/16/2005 STARTED GETTING EXCESSIVE SALIVA & STOMACH UPSET Phenazopyridine Nausea And Vomiting Medium 10/17/2008 Medications Medication Sig Dispensed Refills Start Date End Date Status OMEGA 3-6-9 1,200 MG (400 [id number]) CAP 1 cap daily 0 0 11/29/2008 Active glucosamine-chondroit in, 500-400 mg, (COSAMIN DS 500/400) 500-400 mg Cap Take by mouth. 1 cap bid 0 08/23/2009 Active fexofenadine-pseudoep hedrine, 60-120 MG, (AUGUSTINA-D) 60-120 mg per tablet Take 1 tablet by mouth 2 times daily. 60 tablet 1 03/23/2011 Active valacyclovir (VALTREX) 1 g tablet TAKE ONE TABLET BY MOUTH ONE TIME DAILY 30 tablet 5 06/29/2011 Active Active Problems Problem Noted Date Diagnosed Date Family history of breast cancer in first degree relative 03/15/2015 Anemia, (648.24) 10/26/2008 Vaginal bleeding 10/24/2008 PROM (premature rupture of membranes) 10/24/2008 Primary CLASSICAL Section at 28 2/7 wee ks 10/24/2008 delivery 10/24/2008 28 Completed Weeks of Gestation 10/24/2008 Malpresentation of fetus 10/24/2008 Maternal UTI (urinary tract infection) 9 GBS (group B Streptococcus c arrier), +RV culture, currently 10/13/2008 Constipation 10/11/2008 Abnormal Dopplers Triplet C (AEDF, normal ductus waveform, redistribution in MCA) 10/10/2008 IUGR (Intrauterine Growth Retardation), triplet C 10/09/2008 Elevated serum creatinine 10/09/2008 Incompetent cervix 09/21/2008 Overview: Modified Castrejon cerclage-[address] Curran (09/20/08, 23 2/7 weeks). 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 POLYCYSTIC OVARIAN DISEASE 08/29/2002 HERPES, GENITAL NOS 09/01/1999 Resolved Problems Problem Noted Date Diagnosed Date Resolved Date labor 10/24/2008 10/25/2008 Contractions 09/21/2008 009 Hx of preeclampsia, prior pr egnancy, currently 06/26/2008 10/25/2008 Hx of delivery, currently 06/26/2008 10/25/2008 Absence of menstruation 09/15/200509/03 Scanty or infrequent menstruation 08/23/2001 09/15/2005 ALLERGIES 03/03/2001 09/15/2005 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, 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 09/15/2005 KNEE PAIN 06/26/2008 Immunizations Name Administration Dates Next Due Influenza A (H1N1), Inactivated (Age >=3 Years) 05/29/2009 Influenza, IIV4 04/04/2015 Td (Age >=7 Years) 05/21/2003 Tdap 03/05/2012 Family History Medical History Relation Name Comments Other Brother Hepatitis C Good Health Daughter Hypertension Father Cancer-breast Mother dx age 31 Genetic Other 1 Cancer Cancer-colon Other 2 Cancer-ovarian Other 2 Genetic Other 2 Mother: ND @ 54 , breast CA @31~Father: HTN, gout~GrPrs: CA, HTN~Sibs: VUR Good Health Sister 1 Good Health Sister 2 Relation Name Status Comments Brother Daughter Father Maternal Grandfather (Age 97) Maternal Grandmother (Age 81) Mother Other 1 Other 2 Paternal Grandfather (Age 50) Paternal Grandmother (Age 91) Sister 1 Sister 2 Social History Tobacco Use Types Packs/Day Years Used Date Smoking Tobacco: Never Smokeless Tobacco: Never Alcohol Use Standard Drinks/Week Comments No 0 (1 standard drink = 0.6 oz pure alcohol) Alcoholic Drinks/day: infrequent <2 per month Sex and Gender Information Value Date Recorded Sex Assigned at Not on file Gender Identity Not on file Sexual Orientation Not on file Obstetrics History Para Term AB IAB SAB Ectopic Multiple Livin g Live Births 3 2 0 2 1 0 1 0 1 4 5 Date Outcome GA Total Labor Labor/2nd/3rd Weight Sex Delivery Anes PTL Shira A1 A5 Name Cl in SAB 8w0 d Dece ased 04/08 34w 0d 1.33 kg (2 lb 15 oz) F Vag Zunilda ng Sienn a Snow Delivery Location:[facility] 10/24 28w 2d 0.9 kg (1 lb 15.8 oz) F VCS Spina l Y Zunilda ng 4 8 Juhi [place] Delivery Location:[facility] Comments:pPROM, PTL, c erclage removal 10/24 28w 2d 0.99 kg (2 lb 2.9 oz) M Y Zunilda ng 6 7 Tauri n [place] Delivery Location:[facility] 10/24 28w 2d 0.39 kg (13.8 oz) F Y Zunilda ng 1 6 Arabe lla [place] Delivery Location:[facility] Comments:IUGR, AEDF Last Filed Vital Signs Vital Sign Reading Time Taken Comments Blood Pressure 102/62 07/04/2018 12:05 PM [employer] EXAMINER Pulse 80 07/04/2018 12:05 PM [employer] EXAMINER Temperature 36.7 ??C (98 ??F) 07/04/2018 12:05 PM [employer] EXAMINER Respiratory Rate 18 07/04/2018 12:05 PM [employer] EXAMINER Oxygen Saturation 100% 07/04/2018 12:05 PM [employer] EXAMINER Inhaled Oxygen Concentration - - Weight 49.4 kg (109 lb) 07/04/2018 12:05 PM [employer] EXAMINER Height 154.9 cm (5' 1) 01/20/2017 9:52 AM CDT Body Mass Index 20.6 01/20/2017 9:52 AM CDT Plan of Treatment Health Maintenance Due Date Last Done Comments Hepatitis C screening for age 18-79 10/05/1987 Colonoscopy through age 75 2014 Lipids for age 45-75 2014 07/27/2003 BMI (ht and wt on same day) for age 18+ 01/20/2018 01/20/2017 Depression screening for age 12+ 01/20/2018 01/20/2017 Mammogram for age 45-75 09/23/2018 09/24/19 18, 01/01/2017, 08/14/2016, Additional history exists Zoster (shingles) series for age 50+ (1 of 2) 10/05/2019 Tetanus booster 03/05/2022 03/05/2012, 05/21/2003 COVID-19 vaccine series (2022- season) 2023 Influenza for age 50-64 03/05/2024 04/04/2015, 05/29 Pap test for age 21-65 05/14/2025 , 05/14/2022, 12/26/2018, Additional history exists HIV for age 15-65 Completed 06/26/2008 Tdap Completed 03/05/2012 Pneumococcal series for age 6-64 Aged Out No longer eligible based on patient's age to complete this topic Procedures Procedure Name Priority Date/Time Associated Diagnosis Comments HPV THIN PREP Routine 05/14/2022 9:00 AM [employer] EXAMINER SCAN-MAMMOGRAPHY REPORT 09/23/2017 12:00 AM CDT ANTI HIV 1/2 Today 06/26/2008 3:00 PM [employer] EXAMINER CHOLESTEROL,TOTAL Routine 07/27/2003 3:5 0 PM [employer] EXAMINER from Last 3 Months or Most Recently Relevant to Health Maintenance Results * HPV HIGH RISK (05/14/2022 9:00 AM [employer] EXAMINER) TYPE 16 Negative Negative 05/18/2022 4:51 PM GREY GOODS EXAMINER [facility] TYPE 18 Negative Negative 05/18/2022 4:51 PM GRE[employer] GOODS EXAMINER [facility] OTHER HIGH RISK TYPES Negative Negative 05/18/2022 4:51 PM GREY GOODS EXAMINER [facility] Other (Cervical/Vagina l) 05/14/2022 9:00 AM GRE[employer] GOODS EXAMINER 05/15/2022 8:45 AM [employer] GOODS EXAMINER Narrative [facility] - 05/18/2022 4:51 PM [employer] EXAMINER HPV types 16, 18, 31, 33, 35, 39, 45, 51, 52, 56, 58, 59, 66 and 68 DNA were undetectable or below the pre-set threshold. Methodology: Karlos Krystal 4800 HPV Test Tyra Wallace PA-C MICRO[facility]OLOGY [facility] [address] [place] [address], * SCAN-MAMMOGRAPHY REPORT (09/23/2017 12:00 AM CDT) Anatomical Region Laterality Modality Other Scanner OTHER * ANTI HIV 1/2 (06/26/2008 3:00 PM [employer] EXAMINER) ANTI HIV 1/2 Non-reacti ve [facility] Blood specimen (specimen) BLOOD SPECIMEN / Unknown 06/26/2008 3:00 PM [employer] EXAMINER 06/26/2008 2:57 PM [employer] EXAMINER Aicha Cbaallero MD SEND OUTS [facility] INTERNAL ZIP [address] [place] [id number] * CHOLESTEROL,TOTAL (07/27/2003 3:50 PM GREY GOODS EXAMINER) CHOLESTEROL,TOT AL 168 110 - 199 mg/dL 07/27/2003 3:50 PM [employer] EXAMINER Narrative 12/12/2003 7:49 PM CDT Ordered by an unspecified provider. Other Clinical Staff CHEMISTRY from Last 3 Months or Most Recently Relevant to Health Maintenance Advance Directives Documents on File Type Date Recorded Patient Spear Fisher Expl anation Healthcare Directive 10/22/2008 * Full Code (Latest Code Status on File) Date Activated Date Inactivated Comments 10/24/2008 2:28 PM 10/24/2008 5:20 PM * Full Code Date Activated Date Inactivated Comments 10/24/2008 12:58 PM 10/24/2008 2:27 PM * Full Code Date Activated Date Inactivated Comments 10/09/2008 4:03 PM 10/24/2008 12:57 PM * Full Code Date Activated Date Inactivated Comments 09/24/2008 11:06 AM 09/24/2008 6:48 PM * Full Code Date Activated Date Inactivated Comments 09/20/2008 5:30 PM 09/22/2008 3:17 PM Care Teams Smoking Pipe Maker Relationship Specialty Start Date End Date Fina Douglass PCP - General 10/11/17
--- NOTE | 2023-11-19 13:40 | MM_ITS ---
Patient: AMY RODRIGUES Facility:?[facility] Patient ID:?[id number] Site Patient ID:?[id number]. Site :?[id number] Study:?XRay-Breast Bilateral 3D W/CAD-11/19/2023 1:57:44 PM Ordering Physician:Gianfranco October Final Report: BILATERAL SCREENING MAMMOGRAM WITH COMPUTER-AIDED DETECTION AND TOMOSYNTHESIS TECHNIQUE: CC, MLO and Implant displaced views were obtained. These mammographic images have been obtained using full-field digital technique. These mammographic images were interpreted with the benefit of computer-aided detection. Breast Tomosynthesis was used in this interpretation. COMPARISON FILM: 07/13/22, 02/14/21, 02/09/20. FINDINGS: The breasts are heterogeneously dense, which may obscure small masses. IMPRESSION: There is no radiographic evidence for malignancy. ASSESSMENT: BI-RADS Category 2: Benign RECOMMENDATION: Routine screening mammogram in 1 year. A lay language report of this examination will be provided to the patient. Tone Hill M.D. Diagnostic Radiologist [email or web address] DSM/sp R& Transcribed: 6:33 p.m. SP/Dictated by: Tone Hill MD @ 11/22/2023 10:52:00 AM Signed by:?Tone Hill MD @11/22/2023 8:47:30 PM (Electronic Signature)
--- NOTE | 2023-11-19 14:00 | US_ITS ---
Patient: AMY RODRIGUES Facility:?[facility] Patient ID:?[id number] Site Patient ID:?[id number]. Site :?[id number] Study:?US-Pelvis -11/19/2023 2:28:01 PM Ordering Physician:Gianfranco October Final Report: INDICATION: Pelvic and perineal pain. TECHNIQUE: Ultrasound pelvis transabdominal and transvaginal for better assessment or to better visualize the endometrium. Real-time sonographic images with spectral and color Doppler imaging of the ovaries were obtained. COMPARISON: None. FINDINGS: Uterus: 7 x 5 x 4 cm. Normal echotexture of the myometrium. No masses. Endometrium: Transvaginal imaging was performed to better evaluate the endometrium. Endometrial thickness measures 9 mm. No sign of endometrial mass or fluid. Right ovary 3 x 3 x 2 cm. Left ovary 2 x 2 x 1 cm. Complex cystic lesion in the right ovary measures 2 cm. Normal arterial and venous blood flow is demonstrated in both ovaries. Cul-de-sac: No significant free fluid. IMPRESSION: 1. Complex 2 cm right ovarian cystic lesion may be partially collapsed and/or hemorrhagic. A lesion of this type and in this patient`s age category warrants follow-up evaluation with ultrasound in 6-12 weeks. 2. Remainder of the exam is unremarkable. Dictated by Billy Maravilla MD @ 11/21/2023 11:44:51 AM Signed by:?Billy Maravilla MD @11/21/2023 11:44:51 AM (Electronic Signature)
== END 2023-11-19 13:14 | disposition home or self-care (01) ==
LOC: MAMMO 13:14
PROVIDERS: PCP Physician Assistant Medical; Visit Provider Physician Assistant
DX: Z12.31 Encounter for screening mammogram for malignant neoplasm of breast (principal); R92.2 Inconclusive mammogram; R10.2 Pelvic and perineal pain; N83.201 Unspecified ovarian cyst, right side; G89.29 Other chronic pain
CPT/HCPCS: 76830; 76856; 77063; 77067; 93976

== ENCOUNTER 2024-01-17 13:32 | Outpatient (CLI) | payer BC, SELFPAY ==
--- OUTSIDE RECORDS SUMMARY | 2024-01-17 13:36 | XMS_ITS | Data Portability ---
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 [email or web address] Not available 11/10/2018 10:28:37 [...] as able - discuss transferring care to [facility], due to PT schedule changes upcoming. Short [...] improved muscle tension release and joint protection tool maker apprentice goals to be met in 3 months [...] improved muscle stabilization and control with ADLs *[place] with HEP and self care strategies to manage symptoms and discharge PT. sheri Not available 12/07/2018 11:25:52 12/15/2018 12/15/2018 Progressed deep flexor with with BPU using graded training. Went over sleep position, added foam roll stretch for suboccipital work. Reports feeling looser after manual release suboccipital and cervical paraspinal mm. RTC once more able - discuss transferring care to [facility], due to PT schedule changes upcoming. Goal review next. Short term goals to be met in 3-4 weeks include: *Improve patient's awareness of muscle tension and muscle guarding habits to decrease neck pain. *Improve patient's awareness of neutral head, neck and jaw position to improve posture. *Improve patient's awareness of proper sleep positioning and ergonomics to decrease joint and muscle strain. *Decrease TRORE pain by 50% due to improved muscle tension release and joint protection tool maker apprentice goals to be met in 3 months [...] improved muscle stabilization and control with ADLs *[place] with HEP and self care strategies to manage symptoms and discharge PT. sheri Not available 12/15/2018 13:32:36 12/27/2018 12/27/2018 Improving deep flexor endurance and control, though she continues to have fatigue and muscle tension. Added marching with PBU feedback for control. Also added cervical stretches with adjustments to isolate muscle tension in different areas. TORRE are much better. 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 Short term goals to be met [...] improved muscle tension release and joint protection alf goals to be met in 3 months [...] improved muscle stabilization and control with ADLs *[place] with HEP and self care strategies to manage symptoms and discharge PT. sheri Not available 12/27/2018 19:12:52 Plan of Treatment Reminders Order Date Submit Date Provider Last Modified By Organization Details Last Modified Time Details Appointments None recorded. Lab None recorded. Referral mid-level referral 2018 019 [email or web address] Not available 9 15:59:19 Procedures None recorded. Surgeries None recorded. Imaging None recorded. Medication Orders None recorded. Patient TargetsNo targets recorded. Patient Instructions Encounter Date Encounter Id Patient Instructions Last Modified By Organization Details Last Modified Time 12/05/2018 [id number] Plan: Progress deep flexor and scapular stabilization with pressure biofeedback, adding TA work if needed and neck stretching as needed. Consider cervical spine mobilizations if indicated; assess further in the future. [email or web address] Not available 12/07/2018 11:26:41 12/15/2018 [id number] Plan: Progress deep flexor and scapular stabilization with pressure biofeedback, adding TA work if needed and neck stretching as needed. Consider cervical spine mobilizations if indicated; assess further in the future. [email or web address] Not available 12/15/2018 10:04:12 12/27/2018 [id number] Plan: Progress deep flexor and scapular stabilization with pressure biofeedback, and dynamic LE progression. Consider cervical spine mobilizations if indicated; assess further in the future. Patient will transition to new PT (likely will review goals and reset them as needed next). 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 Procedures Surgical History Date Name Laterality Status Provider Name and Address Organization Details Recorded Time 12/28/19 57941: Therapeutic Exercise completed Lilo carrillo [facility] 12/27/2018 11:13:37 12/28/19 19 96102: Neuromuscular Re-Education completed Lilo carrillo [facility] 12/27/2018 11:13:37 12/16/19 19 51307: Therapeutic Exercise completed Lilo carrillo [facility] 12/15/2018 10:04:12 12/16/19 19 74652: Neuromuscular Re-Education completed Lilo carrillo [facility] 12/15/2018 10:04:12 12/06/19 67836: Therapeutic Exercise completed Lilo carrillo [facility] 12/05/2018 11:06:23 12/06/19 19 85883: Neuromuscular Re-Education completed Lilo carrillo [facility] 12/07/2018 11:19:38 07/26/19 19 80410: Iontophoresis completed Lilo carrillo [facility] 07/26/2018 17:00:45 07/26/19 19 57568: Therapeutic Exercise completed Lilo carrillo [facility] 07/26/2018 17:00:45 07/19/19 19 18718: Iontophoresis completed Lilo carrillo [facility] 07/19/2018 17:35:49 07/19/19 19 58735: Therapeutic Exercise completed Lilo carrillo [facility] 07/19/2018 17:35:43 07/12/19 19 28013: Iontophoresis completed Lilo carrillo [facility] 07/12/2018 17:36:07 06/22/20 18 61903: Iontophoresis completed Lilo carrillo [facility] 06/22/2018 13:53:02 06/15/20 18 58590: Iontophoresis completed Lilo carrillo [facility] 06/15/2018 18:01:05 06/08/20 18 24641: Iontophoresis completed Lilo carrillo [facility] 06/08/2018 10:55:56 06/08/20 18 72871: Therapeutic Exercise completed Lilo carrillo [facility] 06/08/2018 10:38:42 06/01/20 18 84472: Therapeutic Exercise completed Lilo carrillo [facility] 06/01/2018 10:42:33 06/01/20 18 26543: Manual Therapy completed Lilo carrillo [facility] 06/01/2018 10:42:33 05/20/20 18 20607: Ultrasound (1:1) completed Lilo carrillo [facility] 05/20/2018 10:41:15 05/20/20 18 99540: Therapeutic Exercise completed Lilo carrillo [facility] 05/20/2018 10:41:15 05/20/20 18 31064: Manual Therapy completed Lilo carrillo [facility] 05/20/2018 10:41:15 05/04/20 18 10822: Ultrasound (1:1) completed Lilo carrillo [facility] 05/05/2018 18:11:37 05/04/20 18 56405: Therapeutic Exercise completed Lilo carrillo [facility] 05/04/2018 10:34:33 05/04/20 18 11554: Manual Therapy completed Lilo carrillo [facility] 05/10/2018 13:50:05 04/27/20 18 51989 - PT Eval Moderate Complexity completed Lilo carrillo [facility] 04/27/2018 12:04:57 04/27/20 18 24238: Ultrasound (1:1) completed Lilo carrillo [facility] 05/02/2018 14:04:31 04/27/20 18 04950: Therapeutic Exercise completed Lilo Huang [facility] 04/27/2018 12:04:57 [facility] 04/11/2018 13:36:32 [place] Teeth Extraction [facility] 04/11/2018 13:36:41 Other completed [facility] 04/11/2018 13:36:53 ENT/Sinus Surgery [facility] 04/11/2018 13:52:14 Imaging Results None recorded. Procedure Notes None recorded. Medical Equipment None Reported. Allergies Allergen ID Allergen Name Allergen Category Reaction Reaction Severity Criticality Documentation Date Start Date Code Code System Note Provider Name and Address Organization Details Recorded Time 03009 codeine medicatio n Not available Not available Not available 04/11/2018 2670 RxNorm Sunny Pulido [facility] 8 13:32:03 96330 Erythroci n medicatio n Not available Not available Not available 04/11/2018 65114 3 RxNorm Sunny Pulido [facility] 8 [...] completed Not Available Not Available Not Available [place] 3 active Not Available Not Avail able Not Available Hair,Skin and Nails active Not Available Not Available No t Available Vitals Date Recorded Body height Systolic blood pressure Diastolic blood pressure Provider Name and Address Organization Details Last Updated DateTime 09/26/2018 154.94 cm 95 mm[Hg] 64 mm[Hg] Miky Hung [facility] 09/26/2018 12:23:29 Date Recorded Body height Body mass index (BMI) Body weight Heart rate Systolic blood pressure Diastolic blood pressure Provider Name and Address Organization Details Last Updated DateTime 9 154.94 cm 20.2 kg/m2 26709.3 8 g 76 /min 110 mm[Hg] 76 mm[Hg] Ruby Roach [facility] 9 09:20:00 Social History Question Answer Notes LastModified by Organizat ion Details LastModified Time Tobacco Smoking Status Never Smoker [facility] 04/11/2018 [...] not available 04/11/2018 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 No Information not available 04/11/2018 Sex: Unknown Functional Status Question Answer Note LastModified by [...] Meningitis N Pancreatic disease N Heart Attack ([place]) N Stomach Ulcers N Back pain N [...] Name and Address Organization Details Recorded Time Influenza, split virus, quadrivalent, preservative 03/31/2018 completed SHAR[place] Muir [facility] 04/11/2018 13:33:25 Past Encounters Encounter ID Performer Location Encounter Start Date Encounter Closed Date Diagnosis/Indication Diagnosis SNOMED-CT Code [id number] Janice Laron DDS [place] [address] [place] [id number] 04/11/2018 13:05:43 04/11/2018 13:47:28 Arthralgia of temporomandibular joint 01277978 Articular disc disorder of temporomandibular joint 22423636 Myofascial pain 23952833 9 [id number] Lilo Tai [address] [place] [id number] 04/27/2018 11:59:32 04/27/2018 17:36:11 Myofascial pain 052923783 Arthralgia of temporomandibular joint 58620793 Articular disc disorder of temporomandibular joint 34717418 [id number] Lilo Tai [address] [place] [address] 05/04/2018 10:28:22 05/04/2018 17:41:36 Myofascial pain 556238335 Arthralgia of temporomandibular joint 07903526 Articular disc disorder of temporomandibular joint 35918215 [id number] Lilo Tai [address] [place] [address] 05/20/2018 10:37:01 05/20/2018 15:23:50 Myofascial pain 315675616 Arthralgia of temporomandibular joint 67172261 Articular disc disorder of temporomandibular joint 62594157 [id number] Janice Laron DDS [place] [address] [place] [id number] 05/20/2018 10:37:01 05/20/2018 15:23:50 Myofascial pain 702276582 [id number] Lilo Bhattirudoplh Gallegos e [address] [place] [id number] 06/01/2018 10:36:10 06/01/2018 13:59:00 Myofascial pain 106533171 Arthralgia of temporomandibular joint 85965579 Articular disc disorder of temporomandibular joint 68099541 [id number] Lilo Bhattirudolph Gallegos e [address] [place] [id number] 06/08/2018 10:33:48 06/08/2018 15:32:25 Myofascial pain 245153914 Arthralgia of temporomandibular joint 89761300 Articular disc disorder of temporomandibular joint 39812132 [id number] Janice Laron DDS [place] [address] [place] [id number] 06/08/2018 10:37:27 06/08/2018 14:50:21 Myofascial pain 949214630 Arthralgia of temporomandibular joint 44415648 Articular disc disorder of temporomandibular joint 97897242 [id number] Lilo Bhattirudolph Gallegos e [address] [place] [id number] 06/15/2018 13:28:43 06/15/2018 18:25:36 Myofascial pain 740571236 Arthralgia of temporomandibular joint 14007525 Articular disc disorder of temporomandibular joint 42039509 [id number] Lilo Bhattirudolph Gal[place] e [address] [place] [address] 06/22/2018 13:31:55 06/22/2018 13:58:34 Myofascial pain 354214156 Arthralgia of temporomandibular joint 80260550 Articular disc disorder of temporomandibular joint 85765420 [id number] Lilo Huang [place] [address] [place] [address] 07/12/2018 16:48:40 07/12/2018 17:47:34 Myofascial pain 494577880 Arthralgia of temporomandibular joint 71350447 Articular disc disorder of temporomandibular joint 67281766 [id number] Lilo Huang [place] [address] [place] [address] 07/19/2018 16:37:54 07/20/2018 08:11:38 Myofascial pain 815407825 Arthralgia of temporomandibular joint 76806362 Articular disc disorder of temporomandibular joint 07085931 [id number] Lilo Huang [place] [address] [place] [address] 07/26/2018 16:59:26 07/27/2018 10:29:05 Myofascial pain 044725658 Arthralgia of temporomandibular joint 69649599 Articular disc disorder of temporomandibular joint 80921959 [id number] ANICETO XAVIER BDS, [place] [address] [place] [address] 09/26/2018 12:04:31 09/26/2018 13:00:46 Myofascial pain 787326068 Arthralgia of temporomandibular joint 94248064 Articular disc disorder of temporomandibular joint 40601003 Neck pain 22658479 [id number] Pricila Ken [place] [address] [place] [address] 11/10/2018 09:02:55 11/10/2018 10:13:33 Myofascial pain 347709754 Chronic neck pain 478129 4744837 Chronic te nsion-type headache 317253329 [id number] Lilo Huang [place] [address] [place] [address] 12/05/2018 11:02:45 12/05/2018 11:42:54 Myofascial pain 170153825 Chronic neck pain 197677 5615461 Chronic te nsion-type headache 655755887 [id number] Lilo Bhattiosirissuraj [place] [address] [place] [address] 12/15/2018 09:58:40 12/15/2018 11:27:18 Myofascial pain 102399373 Chronic neck pain 853669 7392346 Chronic te nsion-type headache 981065824 [id number] Lilo Huang [place] [address] [place] [address] 12/27/2018 11:10:06 12/27/2018 12:05:31 Myofascial pain 493697404 Chronic neck pain 842058 2226478 Chronic te nsion-type headache 440900450 Health Concerns Section Related Observation LastModified by Organization Detai ls LastModified Time None Recorded Concern Status LastModified by Organization Details LastModified Time None Recorded Advance Directives Directive None Recorded Payers Encounter Date Sequence Insurance Name Policy Number Policy Martinez Covered Member ID Martinez Member ID Guarantor Name 09/26/2018 1 [facility] [id number] Edna Wood [id number] Edna Wood 11/10/2018 1 [facility] [id number] Edna Wood [id number] Ednaher Wood 12/05/2018 1 [facility] [id number] Edna Wood [id number] Ednaher Wood 12/15/2018 1 [facility] [id number] Edna Wood [id number] Edna Wood 12/27/2018 1 [facility] [id number] Edna Wood [id number] Edna Wood Notes Date Note Type Note Provider Name a de Address Organization Details Recorded Time 09/26/2018 text/html HPI Notes: Jody rico presents today for follow-up. They report jaw [...] is uncomfortable. ANICETO XAVIER BDS, [place] [address] [facility] [address], [place], [address], [facility] 09/30/2018 16:00:20 11/10/2018 text/html HPI Notes: Headache Reported by patient. 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 Location: generalized; bilateral; frontal; temporal; base of head Quality: dull/aching/boring ; pressure; Throbs rarely. Severity: pain level 3-7/10; current pain 3/10; higher intensity: occasionally. 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 Sleep 2 hrs solid, 6-7 hrs. Interrupted. Caffeine: 16 oz/day. SHARRI Diehl [facility] 11/10/2018 10:57:05 [...] neck and she is concerned about it. SHARRI Stark - [facility] 12/07/2018 11:27:15 12/15/2018 text/html HPI Notes: Doing the chin nod work pretty consistently. Struggles with pillow use at home - towel roll feels ok at first but then gets tight. Low back has been bothering her lately too. Lilo SHARRI Garber - [facility] 12/15/2018 13:32:52 [...] head is too heavy. SHARRI Stark - [facility] 12/27/2018 19:13:59 OBGyn Episode No OBEpisode recorded.
--- OUTSIDE RECORDS SUMMARY | 2024-01-17 13:36 | XMS_ITS | Clinical Summary ---
Author Organization [facility] [employer] [facility] Address [place], [place] [address] Care Team Providers Care Telephone Appointment Clerk Name Role Phone [facility] Primary Care Provider Unavailabl e Allergies Active Allergy Reactions Criticality Noted Date Comments Codeine Itching 01/16/2005 Erythromycin 01/16/2005 STARTED GETTING EXCESSIVE SALIVA & STOMACH UPSET Phenazopyridine Nausea And Vomiting Medium 10/17/2008 Medications Medication Sig Dispensed Refills Start Date End Date Status OMEGA 3-6-9 1,200 MG (400 [id number]) CAP 1 cap daily 0 0 11/29/2008 [...] Cancer-ovarian Other 2 Genetic Other 2 Mother: DE @ 54 , breast CA @31~Father: HTN, [...] Outcome GA Total Labor Labor/2nd/3rd Weight Sex Type Anes PTL Shira A1 A5 Name Clin SAB 8w0 d Decea sed 2005 34w 0d 1.33 kg (2 lb 15 oz) F Vag Livin g Allie Snow Delivery Location:[facility] 2008 28w 2d 0.9 kg (1 lb 15.8 oz) F VCS Spinal Y Livin g 4 8 Juhi [place] Delivery Location:[facility] Comments:pPROM, PTL, c erclage removal 2008 28w 2d 0.99 kg (2 lb 2.9 oz) M Y Livin g 6 7 Taurin [place] Delivery Location:[facility] 2008 28w 2d 0.39 kg (13.8 oz) F Y Livin g 1 6 Arabel la [place] Delivery Location:[facility] Comments:IUGR, AEDF Last Filed Vital Signs Vital Sign Reading Time Taken Comments Blood Pressure 102/62 07/04/2018 12:05 PM PAINTER DECORATOR Pulse 80 07/04/2018 12:05 PM PAINTER DECORATOR Temperature 36.7 ??C (98 ??F) 07/04/2018 12:05 PM PAINTER DECORATOR Respiratory Rate 18 07/04/2018 12:05 PM PAINTER DECORATOR Oxygen Saturation 100% 07/04/2018 12:05 PM PAINTER DECORATOR Inhaled Oxygen Concentration - - Weight 49.4 kg (109 lb) 07/04/2018 12:05 PM PAINTER DECORATOR Height 154.9 cm (5' 1) 01/20/2017 9:52 [...] HPV THIN PREP Routine 05/14/2022 9:00 AM PAINTER DECORATOR SCAN-MAMMOGRAPHY REPORT 09/23/2017 12:00 AM CDT ANTI HIV 1/2 Today 06/26/2008 3:00 PM PAINTER DECORATOR CHOLESTEROL,TOTAL Routine 07/27/2003 3:5 0 PM PAINTER DECORATOR from Last 3 Months or Most Recently Relevant to Health Maintenance Results * HPV HIGH RISK (05/14/2022 9:00 AM PAINTER DECORATOR) TYPE 16 Negative Negative 05/18/2022 4:51 PM PAINTER DECORATOR [facility] TYPE 18 Negative Negative 05/18/2022 4:51 PM PAINTER DECORATOR [facility] OTHER HIGH RISK TYPES Negative Negative 05/18/2022 4:51 PM PAINTER DECORATOR [facility] Other (Cervical/Vagina l) 05/14/2022 9:00 AM PAINTER DECORATOR 05/15/2022 8:45 AM PAINTER DECORATOR [facility]ative [facility] - 05/18/2022 4:51 PM PAINTER DECORATOR HPV types 16, 18, 31, 33, 35, 39, 45, 51, 52, 56, 58, 59, 66 and 68 DNA were undetectable or below the pre-set threshold. Methodology: Karlos Krystal 4800 HPV Test Tyra Wallace PA-C MICROBIOLOGY [facility] [address] [place] [address], * SCAN-MAMMOGRAPHY REPORT (09/23/2017 12:00 AM CDT) Anatomical Region Laterality Modality Other Scanner OTHER * ANTI HIV 1/2 (06/26/2008 3:00 PM PAINTER DECORATOR) ANTI HIV 1/2 Non-reacti ve [facility] Blood specimen (specimen) BLOOD SPECIMEN / Unknown 06/26/2008 3:00 PM PAINTER DECORATOR 06/26/2008 2:57 PM PAINTER DECORATOR Aicha Caballero MD SEND OUTS [facility] INTERNAL ZIP [address] [place] [id number] * CHOLESTEROL,TOTAL (07/27/2003 3:50 PM PAINTER DECORATOR) CHOLESTEROL,TOT AL 168 110 - 199 mg/dL 07/27/2003 3:50 PM PAINTER DECORATOR Narrative 12/12/2003 7:49 PM CDT Ordered by an unspecified provider. Other Clinical Staff CHEMISTRY from Last 3 Months or Most Recently Relevant to Health Maintenance Advance Directives Documents on File Type Date Recorded Patient Railcar Switcher Expl anation Healthcare Directive 10/22/2008 * Full [...] 5:30 PM 09/22/2008 3:17 PM Care Teams Telephone Appointment Clerk Relationship Specialty Start Date End Date Fina Douglass PCP - General 10/11/17
--- OUTSIDE RECORDS SUMMARY | 2024-01-17 13:36 | XMS_ITS | Clinical Summary ---
Author Organization [facility] Address [address] [place] [address] Care Team Providers Care General Duty Nurse Name Role Phone Unassigned, Provider Primary Care Provider Unava ilable Source Comments You are receiving this document as you are listed as the primary care provider,follow-up provider, or the patient has been referred to you for consultation.This is in compliance with the Medicare and[facility] EHR Incentive Program,which states Providers who transition their patient to another setting of careor provider of care or refers their patient to another provider of care shouldprovide summary care record for each transition of care or referral. [employer] Allergies Active Allergy Reactions Criticality Noted Date [...] 49.9 kg (110 lb) 08/20/2020 11:12 AM PHOTOGRAPHY PROFESSOR Height 154.9 cm (5' 1) 08/20/2020 11:12 AM PHOTOGRAPHY PROFESSOR Body Mass Index 20.78 08/20/2020 11:12 AM PHOTOGRAPHY PROFESSOR Plan of Treatment Health Maintenance Due Date Last Done Comments Cervical Cancer Screening Due 1969 Colon Cancer Screening Plan Due 1969 Hep C Screening (Preventive Services) 1969 Mammogram 1969 HIV Screening (Preventive Services) 1985 Adult Preventive Visit 10/05/1987 HepB (1) 1988 Cholesterol 2014 DTaP/Tdap/Td (3 - Tdap) 03/05/2022 03/05/20 12, 10/23/2010, 05/21/2003 COVID-19 Vaccine ( season) 2023 10/02/2020, 08/29/2020 Influenza (#1) 2024 04/04/2020, 03/06, 03/31/2018, Additional history exists Zoster/Shingles Completed 03/08/2020, [...] age to complete this topic Care Teams General Duty Nurse Relationship Specialty Start Date End Date Unassigned, Provider [address] [place] [address] PCP - General 12/28/01
== END 2024-01-17 13:33 | disposition home or self-care (01) ==
PROVIDERS: PCP Physician Assistant Medical; Visit Provider Physician Assistant
DX: R61 Generalized hyperhidrosis (principal)
CPT/HCPCS: 83001; 84403; 84443

== ENCOUNTER 2024-01-24 10:16 | Outpatient (CLI) | payer BC, SELFPAY ==
--- OUTSIDE RECORDS SUMMARY | 2024-01-24 10:19 | XMS_ITS | Data Portability ---
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, due to PT schedule changes upcoming. [...] improved muscle stabilization and control with ADLs *Dutton with HEP and self care strategies to manage symptoms and discharge PT. sheri Not available 12/07/2018 11:25:52 12/15/2018 12/15/2018 Progressed deep flexor with with BPU using graded training. Went over sleep position, added foam roll stretch for suboccipital work. Reports feeling looser after manual release suboccipital and cervical paraspinal mm. RTC once more able - discuss transferring care to [facility], due to PT schedule changes upcoming. [...] improved muscle stabilization and control with ADLs *Dutton with HEP and self care strategies to [...] benefit from continued therapy to progress toward salvage determiner goals. Short term goals to be met [...] improved muscle tension release and joint protection [facility] goals to be met in 3 months [...] improved muscle stabilization and control with ADLs *Dutton with HEP and self care strategies to [...] By Organization Details Last Modified Time 12/05/2018 [id number] Plan: Progress deep flexor and scapular stabilization with pressure biofeedback, adding TA work if needed and neck stretching as needed. Consider cervical spine mobilizations if indicated; assess further in the future. [email or web address] Not available 12/07/2018 11:26:41 12/15/2018 [id number] Plan: Progress deep flexor and scapular stabilization with pressure biofeedback, adding TA work if needed and neck stretching as needed. Consider cervical spine mobilizations if indicated; assess further in the future. [email or web address] Not available 12/15/2018 10:04:12 12/27/2018 [id number] Plan: Progress deep flexor and scapular stabilization [...] temporomandibul ar joint Active 2017 Janice carrillo [facility] 8 13:58:41 Myofascial pain Active 2017 masticatory and cervical muscles ANICETO XAVIER BDS, [place] [address], [address], [facility] 9 15:59:34 Arthralgia of temporomandibul ar joint Active 2017 Janice carrillo [facility] 8 13:59:33 Chronic neck pain Active 2018 Pricila carrillo [facility] 9 10:15:33 Chronic tension-type headache Active 2018 Pricila carrillo [facility] 9 10:15:47 Problem Notes None recorded. Procedures Surgical History Date Name Laterality Status Provider Name and Address Organization Details Recorded Time 12/28/19 23565: Therapeutic Exercise completed Lilo carrillo [facility] 12/27/2018 11:13:37 12/28/19 19 52017: Neuromuscular Re-Education completed Lilo carrillo [facility] 12/27/2018 11:13:37 12/16/19 19 29425: Therapeutic Exercise completed Lilo carrillo [facility] 12/15/2018 10:04:12 12/16/19 19 58472: Neuromuscular Re-Education completed Lilo carrillo [facility] 12/15/2018 10:04:12 12/06/19 54880: Therapeutic Exercise completed Lilo carrillo [facility] 12/05/2018 11:06:23 12/06/19 19 29423: Neuromuscular Re-Education completed Lilo carrillo [facility] 12/07/2018 11:19:38 07/26/19 19 79397: Iontophoresis completed Lilo carrillo [facility] 07/26/2018 17:00:45 07/26/19 19 00304: Therapeutic Exercise completed Lilo carrillo [facility] 07/26/2018 17:00:45 07/19/19 19 23086: Iontophoresis completed Lilo carrillo [facility] 07/19/2018 17:35:49 07/19/19 19 69528: Therapeutic Exercise completed Lilo carrillo [facility] 07/19/2018 17:35:43 07/12/19 19 79949: Iontophoresis completed Lilo carrillo [facility] 07/12/2018 17:36:07 06/22/20 18 73115: Iontophoresis completed Lilo carrillo [facility] 06/22/2018 13:53:02 06/15/20 18 62058: Iontophoresis completed Lilo carrillo [facility] 06/15/2018 18:01:05 06/08/20 18 01164: Iontophoresis completed Lilo carrillo [facility] 06/08/2018 10:55:56 06/08/20 18 56726: Therapeutic Exercise completed Lilo carrillo [facility] 06/08/2018 10:38:42 06/01/20 18 18256: Therapeutic Exercise completed Lilo carrillo [facility] 06/01/2018 10:42:33 06/01/20 18 17483: Manual Therapy completed Lilo carrillo [facility] 06/01/2018 10:42:33 05/20/20 18 71898: Ultrasound (1:1) completed Lilo carrillo [facility] 05/20/2018 10:41:15 05/20/20 18 42054: Therapeutic Exercise completed Lilo carrillo [facility] 05/20/2018 10:41:15 05/20/20 18 94349: Manual Therapy completed Lilo carrillo [facility] 05/20/2018 10:41:15 05/04/20 18 11882: Ultrasound (1:1) completed Lilo carrillo [facility] 05/05/2018 18:11:37 05/04/20 18 73397: Therapeutic Exercise completed Lilo carrillo [facility] 05/04/2018 10:34:33 05/04/20 18 50612: Manual Therapy completed Lilo carrillo [facility] 05/10/2018 13:50:05 04/27/20 18 70823 - PT Eval Moderate Complexity completed Lilo carrillo [facility] 04/27/2018 12:04:57 04/27/20 18 53962: Ultrasound (1:1) completed Lilo carrillo [facility] 05/02/2018 14:04:31 04/27/20 18 79474: Therapeutic Exercise completed Lilo Huang [facility] 04/27/2018 12:04:57 [facility] 04/11/2018 13:36:32 Lydia Teeth Extraction completed [facility] 04/11/2018 13:36:41 Other completed [facility] 04/11/2018 13:36:53 ENT/Sinus Surgery completed [facility]y [facility] 04/11/2018 13:52:14 Imaging Results None recorded. Procedure Notes None recorded. Medical Equipment None Reported. Allergies Allergen ID Allergen Name Allergen Category Reaction Reaction Severity Criticality Documentation Date Start Date Code Code System Note Provider Name and Address Organization Details Recorded Time 11329 codeine medicatio n Not available Not available Not available 04/11/2018 2670 RxNorm Sunny Pulido [facility] 8 13:32:03 56030 Erythroci n medicatio n Not available Not available Not available 04/11/2018 08069 3 RxNorm Sunny Pulido [facility] 8 13:32:36 [...] completed Not Available Not Available Not Available Romulus 3 active Not Available Not Avail able Not Available Hair,Skin and Nails active Not Available Not Available No t Available Vitals Date Recorded Body height Systolic blood pressure Diastolic blood pressure Provider Name and Address Organization Details Last Updated DateTime 09/26/2018 154.94 cm 95 mm[Hg] 64 mm[Hg] Miky Hung [facility] 09/26/2018 12:23:29 Date Recorded Body height Body mass index (BMI) Body weight Heart rate Systolic blood pressure Diastolic blood pressure Provider Name and Address Organization Details Last Updated DateTime 9 154.94 cm 20.2 kg/m2 80664.3 8 g 76 /min 110 mm[Hg] 76 mm[Hg] Ruby Roach [facility] 9 09:20:00 Social History Question Answer Notes LastModified by Organizat ion Details LastModified Time Tobacco Smoking Status Never Smoker [facility] 04/11/2018 13:34:00 [...] not available 04/11/2018 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/11/2018 Live Alone Or [...] Artery Disease N Other N Gout N Hyperthyroidism N Premenstrual syndrome (PMS) N MRSA N Emphysema N Head Trauma/Injury N Irritable bowel syndrome N COPD N Depression N Pneumonia N Obstructive Sleep Apnea N Anxiety Disorder N Autoimmune disease N Muscle, Joint, or Bone Problems Y Vision or Eye Problems N Arthritis Y Acid Reflux (GERD) N Cancer N Stroke N Neck Injury N History of chemotherapy N Neurologic Disorder N Rheumatoid Arthritis N Fibromyalgia N Headaches Y Kidney Disease N Post traumatic stress disorder (PTSD) N Migraines N Brain Tumors N Meningitis N Pancreatic disease N Back pain N Bleeding Disorder N Tuberculosis N AIDS/HIV N History of radiation therapy N Asthma N Physical or sexual abuse N Substance Abuse N Peripheral Vascular Disease N Vertigo N Sleep Disorder N Hepatitis N Neuropathy N Pulmonary Embolism N Chronic fatigue syndrome N Lung Disease N Hypothyroidism N Glaucoma N Pacemaker N Serious Illness or Injuries N Eating disorder N Back Injury N High Cholesterol N Liver Disease N Organ Transplant N Allergies/Hayfever Y Parkinson's Disease N Anemia N Multiple Sclerosis N Immune System Disorder N Heart Attack ([place]) N Stomach Ulcers N Diabetes N Seizures/Epilepsy N Sjogren's syndrome N Hyperlipidemia N Dementia N Psoriasis N Reflux/GERD N Mental Problems N Aneurysm N Heart Disease N Hypertension Y Osteoporosis N Gynecological HistoryNo gynecological history recorded. Obstetrics History GPAL:G 0 P 0 0 0 0 Immunizations Vaccine Type Date Status Provider Name and Address Organization Details Recorded Time Influenza, split virus, quadrivalent, preservative 03/31/2018 completed SHARRI Muir - [facility] 04/11/2018 13:33:25 Past Encounters Encounter ID Performer Location Encounter Start Date Encounter Closed Date Diagnosis/Indication Diagnosis SNOMED-CT Code [id number] Janice Laron DDS [place] [address] [place] [id number] 04/11/2018 13:05:43 04/11/2018 13:47:28 Arthralgia of temporomandibular joint 40703888 Articular disc disorder of temporomandibular joint 08626602 Myofascial pain 88052164 9 [id number] Lilo Tai [address] [place] [id number] 04/27/2018 11:59:32 04/27/2018 17:36:11 Myofascial pain 380667786 Arthralgia of temporomandibular joint 22084924 Articular disc disorder of temporomandibular joint 97512411 [id number] Lilo Tai [address] [place] [id number] 05/04/2018 10:28:22 05/04/2018 17:41:36 Myofascial pain 552123832 Arthralgia of temporomandibular joint 78642809 Articular disc disorder of temporomandibular joint 38769001 [id number] Lilo Tai [address] [place] [address] 05/20/2018 10:37:01 05/20/2018 15:23:50 Myofascial pain 900288861 Arthralgia of temporomandibular joint 87591042 Articular disc disorder of temporomandibular joint 52029310 [id number] Janice Laron DDS [place] [address] [place] [id number] 05/20/2018 10:37:01 05/20/2018 15:23:50 Myofascial pain 916974347 [id number] Lilo Bhattirudolph Gallegos e [address] [place] [id number] 06/01/2018 10:36:10 06/01/2018 13:59:00 Myofascial pain 829346527 Arthralgia of temporomandibular joint 53121493 Articular disc disorder of temporomandibular joint 62717401 [id number] Lilo Bhattirudolph Gallegos e [address] [place] [id number] 06/08/2018 10:33:48 06/08/2018 15:32:25 Myofascial pain 787868476 Arthralgia of temporomandibular joint 83832167 Articular disc disorder of temporomandibular joint 95092964 [id number] Janice Laron DDS [place] [address] [place] [id number] 06/08/2018 10:37:27 06/08/2018 14:50:21 Myofascial pain 973416193 Arthralgia of temporomandibular joint 10219564 Articular disc disorder of temporomandibular joint 82665371 [id number] Lilo Bhattirudolph Gallegos e [address] [place] [id number] 06/15/2018 13:28:43 06/15/2018 18:25:36 Myofascial pain 705505436 Arthralgia of temporomandibular joint 66292505 Articular disc disorder of temporomandibular joint 13413050 [id number] Lilo Bhattirudolph Gallegos e [address] [place] [id number] 06/22/2018 13:31:55 06/22/2018 13:58:34 Myofascial pain 871056754 Arthralgia of temporomandibular joint 87502381 Articular disc disorder of temporomandibular joint 43201057 [id number] Lilo Huang [place] [address] [place] [id number] 07/12/2018 16:48:40 07/12/2018 17:47:34 Myofascial pain 156690804 Arthralgia of temporomandibular joint 44103604 Articular disc disorder of temporomandibular joint 35440478 [id number] Lilo Huang [place] [address] [place] [address] 07/19/2018 16:37:54 07/20/2018 08:11:38 Myofascial pain 363742883 Arthralgia of temporomandibular joint 64231813 Articular disc disorder of temporomandibular joint 75061787 [id number] Lilo Huang [place] [address] [place] [address] 07/26/2018 16:59:26 07/27/2018 10:29:05 Myofascial pain 685382710 Arthralgia of temporomandibular joint 68067761 Articular disc disorder of temporomandibular joint 15385350 [id number] ANICETO XAVIER BDS, [place] [address] [place] [id number] 09/26/2018 12:04:31 09/26/2018 13:00:46 Myofascial pain 122266655 Arthralgia of temporomandibular joint 31648762 Articular disc disorder of temporomandibular joint 15951359 Neck pain 38513689 [id number] Pricila Ken [place] [address] [place] [id number] 11/10/2018 09:02:55 11/10/2018 10:13:33 Myofascial pain 589024106 Chronic neck pain 147171 7455157 Chronic te nsion-type headache 274912014 [id number] Lilo Huang [place] [address] [place] [address] 12/05/2018 11:02:45 12/05/2018 11:42:54 Myofascial pain 689883030 Chronic neck pain 407632 1447764 Chronic te nsion-type headache 232160910 [id number] Lilo Bhattiosirissuraj [place] [address] [place] [address] 12/15/2018 09:58:40 12/15/2018 11:27:18 Myofascial pain 011022855 Chronic neck pain 354842 6521157 Chronic te nsion-type headache 757696573 [id number] Lilo Huang [place] [address] [place] [id number] 12/27/2018 11:10:06 12/27/2018 12:05:31 Myofascial pain 369994033 Chronic neck pain 346908 4157916 Chronic te nsion-type headache 377622914 Health Concerns Section Related Observation LastModified by Organization Detai ls LastModified Time None Recorded Concern Status LastModified by Organization Details LastModified Time None Recorded Advance Directives Directive None Recorded Payers Encounter Date Sequence Insurance Name Policy Number Policy Martinez Covered Member ID Martinez Member ID Guarantor Name 09/26/2018 1 [facility] [id number] Edna Wood [id number] Edna Wood 11/10/2018 1 [facility] [id number] Edna Wood [id number] Ednaher Wood 12/05/2018 1 [facility] [id number] Edna Wood [id number] Ednaher Wood 12/15/2018 1 [facility] [id number] Edna Wood [id number] Edna Wood 12/27/2018 1 [facility] [id number] Edna Wood [id number] Edna Wood Notes Date Note Type Note Provider Name a id Address Organization Details Recorded Time 09/26/2018 text/html [...] is uncomfortable. ANICETO XAVIER BDS, [place] [address] [facility] [address], [place], [address], [facility] 09/30/2018 16:00:20 11/10/2018 text/html HPI Notes: Headache Reported by patient. Onset/Timing: Onset yrs ago--no jacket changer the yrs. 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 Sleep 2 hrs solid, 6-7 hrs. Interrupted. Caffeine: 16 oz/day. SHARRI Diehl - [facility] 11/10/2018 10:57:05 [...] is concerned about it. SHARRI Stark - [facility] 12/07/2018 11:27:15 12/15/2018 text/html HPI Notes: Doing the chin nod work pretty consistently. Struggles with pillow use at home - towel roll feels ok at first but then gets tight. Low back has been bothering her lately too. Lilo SHARRI Garber - [facility] 12/15/2018 13:32:52 [...] head is too heavy. SHARRI Stark - [facility] 12/27/2018 19:13:59 OBGyn Episode No OBEpisode recorded.
--- OUTSIDE RECORDS SUMMARY | 2024-01-24 10:19 | XMS_ITS | Clinical Summary ---
Author Organization [employer] [facility] Address [place], [place] [address] Care Team Providers Care Malt House Operator Name Role Phone [facility] Primary Care Provider Unavailabl e Allergies Active Allergy Reactions Criticality Noted Date Comments Codeine Itching 01/16/2005 Erythromycin 01/16/2005 STARTED GETTING EXCESSIVE SALIVA & STOMACH UPSET Phenazopyridine Nausea And Vomiting Medium 10/17/2008 Medications Medication Sig Dispensed Refills Start Date End Date Status OMEGA 3-6-9 1,200 MG (400 [id number]) CAP 1 cap daily 0 0 11/29/2008 [...] Cancer-ovarian Other 2 Genetic Other 2 Mother: GA @ 54 , breast CA @31~Father: HTN, [...] F Vag Livin g Allie Snow Delivery Location:[facility] 2008 28w 2d 0.9 kg (1 lb 15.8 oz) F VCS Spinal Y Livin g 4 8 Juhi [place] Delivery Location:[facility] Comments:pPROM, PTL, c erclage removal 2008 28w 2d 0.99 kg (2 lb 2.9 oz) M Y Livin g 6 7 Taurin [place] Delivery Location:[facility] 2008 28w 2d 0.39 kg (13.8 oz) F Y Livin g 1 6 Arabel la [place] Delivery Location:[facility] Comments:IUGR, AEDF Last Filed Vital Signs Vital Sign Reading Time Taken Comments Blood Pressure 102/62 07/04/2018 12:05 PM RESPIRATORY THERAPIST Pulse 80 07/04/2018 12:05 PM RESPIRATORY THERAPIST Temperature 36.7 ??C (98 ??F) 07/04/2018 12:05 PM RESPIRATORY THERAPIST Respiratory Rate 18 07/04/2018 12:05 PM RESPIRATORY THERAPIST Oxygen Saturation 100% 07/04/2018 12:05 PM RESPIRATORY THERAPIST Inhaled Oxygen Concentration - - Weight 49.4 kg (109 lb) 07/04/2018 12:05 PM RESPIRATORY THERAPIST Height 154.9 cm (5' 1) 01/20/2017 9:52 [...] HPV THIN PREP Routine 05/14/2022 9:00 AM RESPIRATORY THERAPIST SCAN-MAMMOGRAPHY REPORT 09/23/2017 12:00 AM CDT ANTI HIV 1/2 Today 06/26/2008 3:00 PM RESPIRATORY THERAPIST CHOLESTEROL,TOTAL Routine 07/27/2003 3:5 0 PM RESPIRATORY THERAPIST from Last 3 Months or Most Recently Relevant to Health Maintenance Results * HPV HIGH RISK (05/14/2022 9:00 AM RESPIRATORY THERAPIST) TYPE 16 Negative Negative 05/18/2022 4:51 PM RESPIRATORY THERAPIST [facility] TYPE 18 Negative Negative 05/18/2022 4:51 PM RESPIRATORY THERAPIST [facility] OTHER HIGH RISK TYPES Negative Negative 05/18/2022 4:51 PM RESPIRATORY THERAPIST [facility] Other (Cervical/Vagina l) 05/14/2022 9:00 AM RESPIRATORY THERAPIST 05/15/2022 8:45 AM RESPIRATORY THERAPIST Narrative [facility] - 05/18/2022 4:51 PM RESPIRATORY THERAPIST HPV types 16, 18, 31, 33, 35, 39, 45, 51, 52, 56, 58, 59, 66 and 68 DNA were undetectable or below the pre-set threshold. Methodology: Karlos Krystal 4800 HPV Test Tyra Wallace PA-C [employer]CRO[employer] [facility] [address] [place] [address], * SCAN-MAMMOGRAPHY REPORT (09/23/2017 12:00 AM CDT) Anatomical Region Laterality Modality Other Scanner OTHER * ANTI HIV 1/2 (06/26/2008 3:00 PM RESPIRATORY THERAPIST) ANTI HIV 1/2 Non-reacti ve [facility] Blood specimen (specimen) BLOOD SPECIMEN / Unknown 06/26/2008 3:00 PM RESPIRATORY THERAPIST 06/26/2008 2:57 PM RESPIRATORY THERAPIST Aicha Caballero MD SEND OUTS [facility] [place]NAL ZIP [address] [place] [id number] * CHOLESTEROL,TOTAL (07/27/2003 3:50 PM RESPIRATORY THERAPIST) CHOLESTEROL,TOT AL 168 110 - 199 mg/dL 07/27/2003 3:50 PM RESPIRATORY THERAPIST Narrative 12/12/2003 7:49 PM CDT Ordered by an unspecified provider. Other Clinical Staff CHEMISTRY from Last 3 Months or Most Recently Relevant to Health Maintenance Advance Directives Documents on File Type Date Recorded Patient Cardiothoracic Surgeon Expl anation Healthcare Directive 10/22/2008 * Full [...] 5:30 PM 09/22/2008 3:17 PM Care Teams Malt House Operator Relationship Specialty Start Date End Date Fina Douglass PCP - General 10/11/17
--- OUTSIDE RECORDS SUMMARY | 2024-01-24 10:19 | XMS_ITS | Clinical Summary ---
Author Organization [facility] Address [address] [place] [address] Care Team Providers Care Body And Frame Technician Name Role Phone Unassigned, Provider Primary Care Provider Unava ilable Source Comments You are receiving this document as you are listed as the primary care provider,follow-up provider, or the patient has been referred to you for consultation.This is in compliance with the Medicare and[facility] EHR Incentive Program,which states Providers who transition their patient to another setting of careor provider of care or refers their patient to another provider of care shouldprovide summary care record for each transition of care or referral. [place] Allergies Active Allergy Reactions Criticality Noted Date [...] 49.9 kg (110 lb) 08/20/2020 11:12 AM TIRE TRIMMER HAND Height 154.9 cm (5' 1) 08/20/2020 11:12 AM TIRE TRIMMER HAND Body Mass Index 20.78 08/20/2020 11:12 AM TIRE TRIMMER HAND Plan of Treatment Health Maintenance Due Date [...] age to complete this topic Care Teams Body And Frame Technician Relationship Specialty Start Date End Date Unassigned, Provider [address] [place] [address] PCP - General 12/28/01
--- NOTE | 2024-01-24 10:45 | CRLHL7_ITS ---
For Patients: As a result of the Century Cures Act, medical imaging exams and procedure reports are released immediately into your electronic medical record. You may view this report before your referring provider. If you have questions, please contact your health care provider. INDICATION: Follow-up hemorrhagic ovarian cyst COMPARISON: 11/19/2023 TECHNIQUE: 2D harrell scale and color Doppler images were acquired of the pelvis using a transabdominal and transvaginal approach. FINDINGS: Sonographic images demonstrate a normal size and smooth outer contour of the uterus. Uterus measures 7.5 cm in length by 4.5 cm in AP diameter by 5.4 cm in transverse dimension. The myometrium has a mildly heterogeneous echotexture. The endometrial lining measures 7.2 mm in composite thickness. The right ovary measures 2.8 x 1.2 x 1.6 cm in size and the left ovary measures 3.5 x 1.8 x 2.2 cm. The ovaries demonstrate normal arterial and venous blood flow on color Doppler analysis. There are no suspicious fluid collections within the cul-de-sac. IMPRESSION: Resolution of the previously noted right ovarian cyst. Dictated by Tone Hill MD @ 01/24/2024 11:34:51 AM (Electronically Signed)
== END 2024-01-24 10:17 | disposition home or self-care (01) ==
PROVIDERS: PCP Physician Assistant Medical; Visit Provider Physician Assistant
DX: N83.209 Unspecified ovarian cyst, unspecified side (principal)
CPT/HCPCS: 76830; 76856; 93976

== ENCOUNTER 2024-11-13 11:25 | Outpatient (CLI) | payer BC, SELFPAY | END 2024-11-13 11:26 | disposition home or self-care (01) | LOC: LKVREF 11:26 | PROVIDERS: PCP Physician Assistant Medical; Visit Provider Physician Assistant | DX: Z00.00 Encounter for general adult medical examination without abnormal findings (principal); Z13.228 Encounter for screening for other metabolic disorders | CPT/HCPCS: 80053 ==

== ENCOUNTER 2025-01-02 12:53 | Outpatient (CLI) | payer BC, SELFPAY ==
--- NOTE | 2025-01-02 13:00 | CRLHL7_ITS ---
For Patients: As a result of the Century Cures Act, medical imaging exams and procedure reports are released immediately into your electronic medical record. You may view this report before your referring provider. If you have questions, please contact your health care provider. INDICATION: BILATERAL SCREENING MAMMOGREAM W/IMPLANT VIEWS, ASYMPTOMATIC 54 YEAR OLD FEMALE COMPARISON: 11/19/2023, 07/13/2022, 02/14/2021 TECHNIQUE: Digital mammogram in CC and MLO projections including computer-aided detection (CAD) and tomosynthesis. BREAST COMPOSITION: The breasts are heterogeneously dense, which may obscure small masses. FINDINGS: No suspicious findings. ASSESSMENT: BI-RADS 2 Benign RECOMMENDATION: Annual screening mammogram. A lay language report of this examination will be provided to the patient. Dictated by: Tone Hill MD @ 01/03/2025 09:39:07 (Electronically Signed)
--- OUTSIDE RECORDS SUMMARY | 2025-01-03 00:30 | XMS_ITS | Clinical Summary ---
Author Organization [facility] Address [address] [place] [address] Care Team Providers Care Javascript Application Developer Name Role Phone Unassigned, Provider Primary Care Provider Unava ilable Source Comments You are receiving this document as you are listed as the primary care provider,follow-up provider, or the patient has been referred to you for consultation.This is in compliance with the Medicare and[facility] EHR Incentive Program,which states Providers who transition their patient to another setting of careor provider of care or refers their patient to another provider of care shouldprovide summary care record for each transition of care or referral. Replenish Allergies Active Allergy Reactions Criticality Noted Date Comments Codeine 05/19/2004 PN: LW Reaction: Itching, Pruritis Erythromycin 05/19/2004 PN: LW Reaction: GI Upset Phenazopyridine 09/23/2004 PN: LW Reaction: UNK Medications progesterone micronized (AKA PROMETRIUM) 200 MG capsule Take 1 capsule by mouth. 05/19/2004 Active valACYclovir (AKA VALTREX) 1 G tablet Take 1 tablet by mouth 2 times daily. 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 Respiratory Rate - - Oxygen Saturation - - Inhaled Oxygen Concentration - - Weight 49.9 kg (110 lb) 08/20/2020 11:12 AM TELEGRAPHIC INSTRUMENT SUPERVISOR Height 154.9 cm (5' 1) 08/20/2020 11:12 AM TELEGRAPHIC INSTRUMENT SUPERVISOR Body Mass Index 20.78 08/20/2020 11:12 AM TELEGRAPHIC INSTRUMENT SUPERVISOR Plan of Treatment Health Maintenance Due Date Last Done Comments Cervical Cancer Screening Due 1969 Colon Cancer Screening Plan Due 1969 Hep C Screening (Preventive Services) 1969 Mammogram 1969 HIV Screening (Preventive Services) 1985 Adult Preventive Visit 10/05/1987 HepB Vaccine (1) 1988 Cholesterol 2014 Pneumococcal Vaccine 50+ Yrs (1 of 1 - PCV) 10/05/2019 DTaP/Tdap/Td Vaccine (3 - Tdap) 03/05/2022 03/05/2012, 10/23/2010, 05/21/2003 COVID-19 Vaccine (3 - season) 2024 10/02/2020, 08/29/2020 Influenza Vaccine (Season Ended) 2025 04/04/2020, 03/30/2019, 03/31/2018, Additional history exists Zoster/Shingles Vaccine Completed 03/08/2020, 12/14 HepA Vaccine Aged Out No longer eligi ble based on patient's age to complete this topic Hib Vaccine Aged Out No longer eligi ble based on patient's age to complete this topic IPV (Polio) Vaccine Aged Out No longe r eligible based on patient's age to complete this topic MCV4 Vaccine Aged Out No longer eligi ble based on patient's age to complete this topic Meningococcal B Vaccine Aged Out No l onger eligible based on patient's age to complete this topic Insurance [facility] Care Teams Javascript Application Developer Relationship Specialty Start Date End Date Unassigned, Provider [address] [place] [address] PCP - General 12/28/01
--- OUTSIDE RECORDS SUMMARY | 2025-01-03 00:30 | XMS_ITS | Clinical Summary ---
Author Organization [facility] Address [address] [place] [address] Care Team Providers Care Wide Load Escort Name Role Phone [facility] Primary Care Provider Unavailabl e Allergies Active Allergy Reactions Criticality Noted Date Comments Codeine Itching 01/16/2005 Erythromycin 01/16/2005 STARTED GETTING EXCESSIVE SALIVA & STOMACH UPSET Phenazopyridine Nausea And Vomiting Medium 10/17/2008 Medications OMEGA 3-6-9 1,200 MG (400 [id number]) CAP 1 cap daily 0 0 9 Active glucosamine-kang droitin, 500-400 mg, (COSAMIN DS 500/400) 500-400 mg Cap Take by mouth. 1 cap bid 0 0 Active valacyclovir (VALTREX) 1 g tablet TAKE ONE TABLET BY MOUTH ONE TIME DAILY 30 tablet 5 1 Active sertraline (Zoloft) 50 mg tablet Take 1 Tablet (50 mg) by mouth once daily. 4 Active atorvastatin (Lipitor) 40 mg tabletIndication s:Abnormal Heart Score CT,Chest pain, unspecified type Take 1 Tablet (40 mg) by mouth once daily. 90 Tablet 3 4 Active metoprolol tartrate (LOPRESSOR) 50 mg tabletIndication s:Chest pain, unspecified type Take Metoprolol Tartrate 50 mg by mouth at bedtime 06/06/24 and Metoprolol Tartrate 50 mg by mouth 2 hours prior to exam scheduled 06/07/24 2 Tablet 4 Active aspirin 81 mg cap Take 81 mg by mouth once daily. Active Active Problems Problem Noted Date Diagnosed [...] Elevated serum creatinine 10/09/2008 Incompetent cervix 09/21/2008 Overview (10/25/2008): Modified Castrejon cerclage-[address] Curran (09/20/08, 23 2/7 weeks). Removal of cervical cerclage (10/24/08) Triplet 06/26/2008 Overview (06/26/2008): Trichorionic/triamniotic Advanced Maternal Age in 06/26/2008 Congenital [...] AGENT 2000 09/15/2005 KNEE PAIN 06/26/2008 Immunizations Immunization Administration Dates Next Due Influenza A (H1N1), Inactivated (Age >=3 Years) 05/29/2009 Influenza, IIV4 04/04/2015 Td (Age >=7 Years) 05/21/2003 Tdap 03/05/2012 Family History Medical History Relation Name Comments Good Health Daughter Heart failure Father Hypertension Father Cancer-breast Mother dx age 31 Coronary artery disease Mother Heart attack Mother Hyperlipidemia Mother Genetic Other 1 Cancer Cancer-colon Other 2 Cancer-ovarian Other 2 Genetic Other 2 Mother: NE @ 54 , breast CA @31~Father: HTN, gout~GrPrs: CA, HTN~Sibs: VUR Good Health Sister 1 Good Health Sister 2 Relation Name Status Comments Brother Daughter Father Alive Maternal Grandfather (Age 97) Maternal Grandmother (Age 81) Mother Alive Other 1 Other 2 Paternal Grandfather (Age 50) Paternal Grandmother (Age 91) Sister 1 Sister 2 Social History Tobacco Use Types Packs/Day Years Used Date Smoking Tobacco: Never Smokeless Tobacco: Never Tobacco Cessation:Counseling Given: Not Answered Alcohol Use Standard Drinks/Week Comments Yes 0 (1 standard drink = 0.6 oz pure alcohol) Alcoholic Drinks/day: infrequent <4 per month Comments No Sex and Gender Information Value Date Recorded Sex Assigned at Not on file Legal Sex Female 5:27 AM SUPERVISOR PLATE PASTING Gender Identity Not on file Sexual Orientation Not on file 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 Not on file Not on file Obstetrics History Para Term [...] F Vag Livin g Allie Snow Delivery Location:[facility] 2008 28w 2d 0.9 kg (1 lb 15.8 oz) F [facility] Spinal Y Livin g 4 8 Juhi Fairb anks Delivery Location:[facility] Comments:pPROM, PTL, c erclage removal 2008 28w 2d 0.99 kg (2 lb 2.9 oz) M Y Livin g 6 7 Taurin Fairb anks Delivery Location:[facility] 2008 28w 2d 0.39 kg (13.8 oz) F Kye dotson 1 6 Demetris Patino Delivery Location:[facility] Comments:IUGR, AEDF Last Filed Vital Signs Vital Sign Reading Time Taken Comments Blood Pressure 114/68 08/04/2024 8:01 AM SUPERVISOR PLATE PASTING Pulse 74 08/04/2024 8:01 AM SUPERVISOR PLATE PASTING Temperature 36.7 C (98 F) 07/04/2018 12:05 PM SUPERVISOR PLATE PASTING Respiratory Rate 16 08/04/2024 8:01 AM SUPERVISOR PLATE PASTING Oxygen Saturation 98% 08/04/2024 8:01 AM SUPERVISOR PLATE PASTING Inhaled Oxygen Concentration - - Weight 52.6 kg (116 lb) 08/04/2024 8:01 AM SUPERVISOR PLATE PASTING Height 154.9 cm (5' 1) 08/04/2024 8:01 AM SUPERVISOR PLATE PASTING Body Mass Index 21.92 08/04/2024 8:01 AM SUPERVISOR PLATE PASTING Plan of Treatment Health Maintenance Due Date Last Done Comments Hepatitis C screening for ag e 18-79 10/05/1987 Hepatitis B series for 19+ ( 1 of 3 - 19+ 3-dose series) 1988 Pneumococcal series for age 50+ (1 of 2 - PCV) 1988 Colonoscopy through age 75 2014 Depression screening for age 12+ 01/20/2018 01/21/20 17 Mammogram for age 45-75 09/23/2018 09/24/19 18, 01/01/2017, 08/14/2016, Additional history exists Zoster (shingles) series for age 50+ (1 of 2) 10/05/2019 Tetanus booster 03/05/2022 03/05/2012, 05/21/2003 COVID-19 vaccine series ( season) 2024 04/14/2023, 05/25/2021, 10/02/2020, Additional history exists Influenza Vaccine (Season Ended) 2025 04/04/20 15 Pap test for age 21-65 05/14/2025 , 05/14/2022, 12/26/2018, Additional history exists BMI (ht and wt on same day) for age 18+ 08/04/2025 08/04/2024, 05/01/2024, 01/20/2017 Lipids for age 45-75 05/08/2029 05/08/2024, 07/27/19 04 HIV for age 15-65 Completed 06/26/2008 (IA) Tdap Completed 03/05/2012 Procedures Procedure Name Priority Date/Time Associated Diagnosis Comments LIPID PANEL W REFLEX MEASURED LDL Routine 05/08/2024 9:40 AM SUPERVISOR PLATE PASTING Coronary artery disease involving [place] coronary artery of [place] heart with angina pectoris LINE COOK THIN PREP PAP SCREEN IMAGED Routine 05/14/2022 9:00 AM SUPERVISOR PLATE PASTING SCAN-MAMMOGRAPHY REPORT 09/23/2017 12:00 AM CDT ANTI HIV 1/2 Today 06/26/2008 3:00 PM SUPERVISOR PLATE PASTING from Last 3 Months or Most Recently Relevant to Health Maintenance Results * LIPID PANEL W REFLEX MEASURED LDL (05/08/2024 9:40 AM SUPERVISOR PLATE PASTING) CHOLESTEROL, TOTAL 149 <200 mg/dL [facility] HDL CHOLESTEROL 67 > OR = 50 mg/dL [facility] TRIGLYCERIDES 55 <150 mg/dL [facility] LDL-CHOLESTEROL 68 mg/dL (calc) [facility] Comment: Reference range: <100 Desirable range <100 mg/dL for primary prevention; <70 mg/dL for patients with CHD or diabetic patients with > or = 2 CHD risk factors. LDL-C is now calculated using the Casey-Willie calculation, which is a validated novel method providing better accuracy than the Friedewald equation in the estimation of LDL-C. Casey DENT et al. OLIVIA. 2013;310(19): 2016-7751 (http://education.Vapotherm.Globalia/faq/LTZ744) CHOL/HDLC RATIO 2.2 <5.0 (calc) [facility] NON HDL CHOLESTEROL 82 <130 mg/dL (calc) [facility] Comment: For patients with diabetes plus 1 major ASCVD risk factor, treating to a non-HDL-C goal of <100 mg/dL (LDL-C of <70 mg/dL) is considered a therapeutic option. Blood BLOOD SPECIMEN / Unknown 05/08/2024 9:40 AM SUPERVISOR PLATE PASTING 05/08/2024 9:40 AM SUPERVISOR PLATE PASTING Jaylan Leon MD CHEMISTRY Final Result Lat49 [facility] [address] [place] [address], [facility] [address] [place] [address] * LINE COOK THIN PREP PAP SCREEN IMAGED (05/14/2022 9:00 AM SUPERVISOR PLATE PASTING) Case Report Gynecologic Cytology Report Case: [id number] Authorizing Provider: Tyra Wallace PA-C Collected: 05/14/2022 0900 Ordering Location: [facility] Received: 05/15/2022 0845 First Screen: Yan Ma Pathologist: Tyra Zhou MD Specimen: LINE COOK ThinPrep Vial Screening, Cervical/Vaginal 06/11/2022 5:08 PM SUPERVISOR PLATE PASTING [facility] INTERPRETATION/ RESULT NEGATIVE FOR INTRAEPITHELIAL LESION OR MALIGNANCY (NIL) (none) 06/11/2022 5:08 PM SUPERVISOR PLATE PASTING [facility] at [address] SUPERVISOR PLATE PASTING OTHER Endometrial cells in a woman more than 45 years of age. 06/11/2022 5:08 PM SUPERVISOR PLATE PASTING [facility] EDUCATIONAL NOTES & SUGGESTIONS Endometrial cells after the age of 45, particularly out of phase or after menopause, may be associated with benign endometrium, hormonal alterations and less commonly with endometrial uterine abnormalities. Endometrial cells correlate with the menstrual history provided. 06/11/2022 5:08 PM SUPERVISOR PLATE PASTING [facility] SPECIMEN ADEQUACY Satisfactory for evaluation Endocervical component present 06/11/2022 5:08 PM SUPERVISOR PLATE PASTING [facility] HPV REQUEST HPV and PAP 06/11/2022 5:08 PM SUPERVISOR PLATE PASTING [facility] Date of LMP 05/13/2022 06/11/2022 5:08 PM SUPERVISOR PLATE PASTING [facility] Last Pap Date 12/26/2018 06/11/2022 5:08 PM [facility] Last Pap Result NIL 5:08 PM [facility] Menstrual Status Regular Periods 06/11/2022 5:08 PM [facility] Additional Information 06/11/2022 5:08 PM [facility] Comment: Interpreted at [facility] - [address], [place] [address] Automated Review Successful 06/11/2022 5:08 PM [facility] Comment:Specimen processed s uccessfully by automated wash driller helper device, [employer] Imaging System, [employer] ANCILLARY TESTING LINE COOK HPV Ordered, Please see separate report 06/11/2022 5:08 PM [facility] Note The pap test is a screening technique, not a diagnostic procedure. It is used primarily to screen for squamous cancers and precursor lesions. Published studies have shown that it is subject to both false negative and false positive results. The pap test should not be used as the sole means to diagnose or exclude pre-malignant and malignant lesions. 06/11/2022 5:08 PM [facility] Other (Cervical/Vagina l) 05/14/2022 9:00 AM SUPERVISOR PLATE PASTING 05/15/2022 8:45 AM SUPERVISOR PLATE PASTING us Tyra Wallace PA-C PATHOLOGY/CYTOLOGY Final Res ult [facility] [address] [place] [address], [place] * SCAN-MAMMOGRAPHY REPORT (09/23/2017 12:00 AM CDT) Anatomical Region Laterality Modality Other us Scanner OTHER Final Result * ANTI HIV 1/2 (06/26/2008 3:00 PM SUPERVISOR PLATE PASTING) ANTI HIV 1/2 Non-reacti ve [facility] Blood specimen (specimen) BLOOD SPECIMEN / Unknown 06/26/2008 3:00 PM SUPERVISOR PLATE PASTING 06/26/2008 2:57 PM SUPERVISOR PLATE PASTING us Aicha Caballero MD SEND OUTS Final Resul t [facility] [place] ZIP [id number] [address] from Last 3 Months or Most Recently Relevant to Health Maintenance Insurance [facility] TPL UNDETERMINED Advance Directives Documents on File Type Date Recorded Patient Director Prison Expl anation Healthcare Directive 10/22/2008 * Full [...] 5:30 PM 09/22/2008 3:17 PM Care Teams Wide Load Escort Relationship Specialty Start Date End Date [place] [facility] PCP - General 10/11/17
--- OUTSIDE RECORDS SUMMARY | 2025-01-03 00:30 | XMS_ITS | Data Portability ---
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 sheri Not available 12/07/2018 11:25:52 12/15/2018 12/15/2018 Progressed deep flexor with with BPU using graded training. Went over sleep position, added foam roll stretch for suboccipital work. Reports feeling looser after manual release suboccipital and cervical paraspinal mm. RTC once more able - discuss transferring care to [facility], due to PT schedule changes upcoming. 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 [email or web address] Not available 12/15/2018 13:32:36 12/27/2018 12/27/2018 Improving deep flexor endurance and control, though she continues to have fatigue and muscle tension. Added marching with PBU feedback for control. Also added cervical stretches with adjustments to isolate muscle tension in different areas. TORRE are much better. 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 Short term goals to be met [...] improved muscle tension release and joint protection senior care goals to be met in 3 months [...] improved muscle stabilization and control with ADLs *[place] with HEP and self care strategies to [...] By Organization Details Last Modified Time 12/05/2018 [id number] Plan: Progress deep flexor and scapular stabilization with pressure biofeedback, adding TA work if needed and neck stretching as needed. Consider cervical spine mobilizations if indicated; assess further in the future. [email or web address] Not available 12/07/2018 11:26:41 12/15/2018 [id number] Plan: Progress deep flexor and scapular stabilization with pressure biofeedback, adding TA work if needed and neck stretching as needed. Consider cervical spine mobilizations if indicated; assess further in the future. [email or web address] Not available 12/15/2018 10:04:12 12/27/2018 [id number] Plan: Progress deep flexor and scapular stabilization with pressure biofeedback, and dynamic LE progression. Consider cervical spine mobilizations if indicated; assess further in the future. Patient will transition to new PT (likely will review goals and reset them as needed next). 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 9 15:59:34 Pain of temporom andibula r joint 41631772 Active 2017 Ajnice Laron DDS l[place]na, [facility] 8 13:59:33 Chronic neck pain 73417560461 07 Active 2018 Pricila Ken l[place]na [facility] 9 10:15:33 Chronic tension- type headache 821513932 Active 2018 Pricila Ken l[place]na [facility] 9 10:15:47 Problem Notes None recorded. Procedures Surgical History Date Name Laterality Status Provider Name and Address Organization Details Recorded Time 12/28/19 19 38903: Therapeutic Exercise completed Lilo Huang [facility] 12/27/2018 11:13:37 12/28/19 19 94789: Neuromuscular Re-Education completed Lilo Huang [facility] 12/27/2018 11:13:37 12/16/19 19 83452: Therapeutic Exercise completed Lilo Huang [facility] 12/15/2018 10:04:12 12/16/19 19 68652: Neuromuscular Re-Education completed Lilo Huang [facility] 12/15/2018 10:04:12 12/06/19 19 19045: Therapeutic Exercise completed Lilo Huang [facility] 12/05/2018 11:06:23 12/06/19 19 16624: Neuromuscular Re-Education completed Lilo Huang [facility] 12/07/2018 11:19:38 07/26/19 19 93706: Iontophoresis completed Lilo Huang [facility] 07/26/2018 17:00:45 07/26/19 19 64264: Therapeutic Exercise completed Lilo Huang [facility] 07/26/2018 17:00:45 07/19/19 19 57696: Iontophoresis completed Lilo Huang [facility] 07/19/2018 17:35:49 07/19/19 19 64143: Therapeutic Exercise completed Lilo Huang [facility] 07/19/2018 17:35:43 07/12/19 19 17120: Iontophoresis completed Lilo Huang [facility] 07/12/2018 17:36:07 06/22/20 18 46330: Iontophoresis completed Lilo Huang [facility] 06/22/2018 13:53:02 06/15/20 18 16064: Iontophoresis completed Lilo Huang [facility] 06/15/2018 18:01:05 06/08/20 18 20201: Iontophoresis completed Lilo Baughsuraj [facility] 06/08/2018 10:55:56 06/08/20 18 54772: Therapeutic Exercise completed Lilo Baughsuraj [facility] 06/08/2018 10:38:42 06/01/20 18 19440: Therapeutic Exercise completed Lilo Bhattirudolph [facility] 06/01/2018 10:42:33 06/01/20 18 47872: Manual Therapy completed Lilo Baughsruaj [facility] 06/01/2018 10:42:33 05/20/20 18 38347: Ultrasound (1:1) completed Lilo Bhattirudolph [facility] 05/20/2018 10:41:15 05/20/20 18 22678: Therapeutic Exercise completed Lilo Bhattirudolph [facility] 05/20/2018 10:41:15 05/20/20 18 12867: Manual Therapy completed Lilo Bhattirudolph [facility] 05/20/2018 10:41:15 05/04/20 18 23012: Ultrasound (1:1) completed Lilo Bhattirudolph [facility] 05/05/2018 18:11:37 05/04/20 18 30744: Therapeutic Exercise completed Lilo Bhattirudolph [facility] 05/04/2018 10:34:33 05/04/20 18 28274: Manual Therapy completed Lilo Reina [facility] 05/10/2018 13:50:05 04/27/20 18 64824 - PT Eval Moderate Complexity completed Lilo Reina [facility] 04/27/2018 12:04:57 04/27/20 18 26721: Ultrasound (1:1) completed Lilo Reina [facility] 05/02/2018 14:04:31 04/27/20 18 88778: Therapeutic Exercise completed Lilomikala Bhattirudolph [facility] 04/27/2018 12:04:57 Joint Replacement completed Sunny Pulido [facility] 04/11/2018 13:36:32 [place] Teeth Extraction completed Sunny Pulido [facility] 04/11/2018 13:36:41 Other completed Sunny Pulido [facility] 04/11/2018 13:36:53 ENT/Sinus Surgery completed Miky Hung [facility] 04/11/2018 13:52:14 Imaging Results None recorded. Procedure Notes None recorded. Medical Equipment None Reported. Allergies Allergen ID Allergen Name Allergen Category Reaction Reaction Severity Criticality Documentation Date Start Date Code Code System Note Provider Name and Address Organization Details Recorded Time 26621 codeine medicatio n Not available Not available Not available 04/11/2018 2670 RxNorm Sunny carrillo [facility] 8 13:32:03 13464 Erythroci n medicatio n Not available Not available Not available 04/11/2018 81507 3 RxNorm Sunny carrillo [facility] [...] completed Not Available Not Available Not Available [place] 3 active Not Available Not Avail able Not Available Hair,Skin and Nails active Not Available Not Available No t Available Vitals Date Recorded Body height Systolic blood pressure Diastolic blood pressure Provider Name and Address Organization Details Last Updated DateTime 09/26/2018 154.94 cm 95 mm[Hg] 64 mm[Hg] Miky Hung [facility] 09/26/2018 12:23:29 Date Recorded Body height Body mass index (BMI) Body weight Heart rate Systolic blood pressure Diastolic blood pressure Provider Name and Address Organization Details Last Updated DateTime 9 154.94 cm 20.2 kg/m2 86510.3 8 g 76 /min 110 mm[Hg] 76 mm[Hg] Ruby Roach [facility] 9 09:20:00 Social History Question Answer Notes LastModified by Organizat ion Details LastModified Time Tobacco Smoking Status Never [facility] 04/11/2018 13:34:00 Auto Related Injury? No Information not available 04/11/2018 What Is Your Level Of Caffeine Consumption? Moderate Information not available 04/11/2018 Currently No Information not available 04/11/2018 What Type Of Diet Are You Following? REGULAR Information not available 04/11/2018 Education Post Graduate Information not available 04/11/2018 Live Alone Or [...] Of Your Most Recent Tobacco Screening? 11/10/2018 [id number] Information not available 01/26/2019 If Injured, Is Litigation Ongoing? No Information not available 04/11/2018 General Stress Level Medium Information not available 04/11/2018 Work Related Injury? No Information not available 04/11/2018 Sex: Unknown Functional Status Question Answer Note LastModified by Organizat ion Details LastModified Time Do you use any illicit or recreational drugs? No Information not available 04/11/2018 What is your level of alcohol consumption? Occasional Information not available 04/11/2018 Are you currently employed? 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 Heavy Information not available 04/11/2018 Mental Status None recorded. Family History Relationship Description Onset Age of this Age Resolved Age Notes LastModified by Organization Details LastModified Time Father Arthritis [email or web address] Not availab le 04/11/2018 13:33:47 Medical History Condition Response Coronary Artery Disease N Other N Gout N Chronic fatigue syndrome N Hyperthyroidism N Premenstrual syndrome (PMS) N MRSA N Emphysema N Head Trauma/Injury N Irritable bowel syndrome N COPD N Depression N Glaucoma N Lung Disease N Hypothyroidism N Pneumonia N Pacemaker N Obstructive Sleep Apnea N Anxiety Disorder N Muscle, Joint, or Bone Problems Y Autoimmune disease N Vision or Eye Problems N Arthritis Y Serious Illness or Injuries N Acid Reflux (GERD) N Cancer N Stroke N Neck Injury N Eating disorder N Back Injury N High Cholesterol N Neurologic Disorder N History of chemotherapy N Liver Disease N Organ Transplant N Rheumatoid Arthritis N Fibromyalgia N Headaches Y Kidney Disease N Allergies/Hayfever Y Post traumatic stress disorder (PTSD) N Parkinson's Disease N Migraines N Brain Tumors N Anemia N Multiple Sclerosis N Immune System Disorder N Meningitis N Pancreatic disease N Heart Attack ([place]) N Stomach Ulcers N Diabetes N Back pain N Bleeding Disorder N Seizures/Epilepsy N Sjogren's syndrome N Mental Health Concerns N Tuberculosis N AIDS/HIV N Hyperlipidemia N History of radiation therapy N Dementia N Asthma N Physical or sexual abuse N Substance Abuse N Psoriasis N Peripheral Vascular Disease N Reflux/GERD N Vertigo N Sleep Disorder N Hepatitis N Aneurysm N Neuropathy N Heart Disease N Pulmonary Embolism N Hypertension Y Osteoporosis N Gynecological HistoryNo gynecological history recorded. Obstetrics History GPAL:G 0 P 0 0 0 0 Immunizations Vaccine Type Date Status Note Provider Nam e and Address Organization Details Recorded Time Influenza, split virus, quadrivalent, preservative 8 completed [place] [facility] 04/11/2018 13:33:25 Past Encounters Encounter ID Performer Location Encounter Start Date Encounter Closed Date Diagnosis/Indication Diagnosis SNOMED-CT Code Diagnosis ICD10 Code Diagnosis Note [id number] [facility] [place] CITLALLI archuleta [place] [address] [place], [place] [address] 04/11/2018 13:05:43 04/11/2018 13:47:28 Pain of temporomandibular joint 52156920 M26.621 Articular disc disorder of temporomandibular joint 47735903 M26.633 Myofascial pain 04441612 9 M79.11 [id number] AMERICO HernandezT, CCTT [place] [address] [place] [id number] 04/27/2018 11:59:32 04/27/2018 17:36:11 Myofascial pain 382169461 M79.11 Pain of temporomandibular joint 31677368 M26.629 Articular disc disorder of temporomandibular joint 72184658 M26.639 [id number] AMERICO HernandezT, CCTT [place] [address] [place] [id number] 05/04/2018 10:28:22 05/04/2018 17:41:36 Myofascial pain 262439859 M79.11 Pain of temporomandibular joint 99847193 M26.629 Articular disc disorder of temporomandibular joint 84425007 M26.639 [id number] AMERICO HernandezT, CCTT [place] [address] [place] [id number] 05/20/2018 10:37:01 05/20/2018 15:23:50 Myofascial pain 600234402 M79.11 Pain of temporomandibular joint 82478513 M26.629 Articular disc disorder of temporomandibular joint 07346400 M26.639 [id number] [facility] [place] archuleta, DDS [place] [address] [place], [place] [address] 05/20/2018 10:37:01 05/20/2018 15:23:50 Myofascial pain 905967743 M79.11 [id number] Lilo Huang, AMERICOT, CCTT [place] [address] [place] [id number] 06/01/2018 10:36:10 06/01/2018 13:59:00 Myofascial pain 744154303 M79.11 Pain of temporomandibular joint 22488164 M26.629 Articular disc disorder of temporomandibular joint 37457947 M26.639 [id number] Lilo Huang, AMERICOT, CCTT [place] [address] [place] [id number] 06/08/2018 10:33:48 06/08/2018 15:32:25 Myofascial pain 465054819 M79.11 Pain of temporomandibular joint 60270341 M26.629 Articular disc disorder of temporomandibular joint 31040419 M26.639 [id number] [facility] Weston archuleta, DDS [place] [address] [place] [id number] 06/08/2018 10:37:27 06/08/2018 14:50:21 Myofascial pain 239733797 M79.11 Pain of temporomandibular joint 71886688 M26.621 Articular disc disorder of temporomandibular joint 64167325 M26.633 [id number] [facility] kathe, DDS [place] [address] [place], [place] [id number] 06/15/2018 13:28:43 06/15/2018 18:25:36 Myofascial pain 602054632 M79.11 Pain of temporomandibular joint 00565297 M26.629 Articular disc disorder of temporomandibular joint 57796398 M26.639 [id number] Lilo Huang, AMERICOT, CCTT [place] [address] [place], [place] [address] 06/22/2018 13:31:55 06/22/2018 13:58:34 Myofascial pain 510669637 M79.11 Pain of temporomandibular joint 19513043 M26.629 Articular disc disorder of temporomandibular joint 85286853 M26.639 [id number] Lilo Huang, AMERICOT, CCTT [place] [address] [place], [place] [address] 07/12/2018 16:48:40 07/12/2018 17:47:34 Myofascial pain 814567378 M79.11 Pain of temporomandibular joint 69996051 M26.629 Articular disc disorder of temporomandibular joint 93832380 M26.639 [id number] Lilo Huang, AMERICOT, CCTT [place] [address] [place], [place] [address] 07/19/2018 16:37:54 07/20/2018 08:11:38 Myofascial pain 498281365 M79.11 Pain of temporomandibular joint 47090318 M26.629 Articular disc disorder of temporomandibular joint 82305143 M26.639 [id number] Lilo Huang, AMERICOT, CCTT [place] [address] [place] [id number] 07/26/2018 16:59:26 07/27/2018 10:29:05 Myofascial pain 980105847 M79.11 Pain of temporomandibular joint 65303298 M26.629 Articular disc disorder of temporomandibular joint 10868703 M26.639 [id number] PRECHRISTELLE XAVIER, BDS, [place] [address] [place] [id number] 09/26/2018 12:04:31 09/26/2018 13:00:46 Myofascial pain 488802516 M79.10 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 I discussed contributi ng factors to these symptoms, including the of role stress, tension, and emotional factors which play into autonomic nervous system arousal. Recommend these issues be addressed in order to effectivel y address pain. 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 Recommend physical therapy for evaluation /treatment of neck pain and headache: active/pas sive modalities . Frequency: 1-2 x/week up to 10 visits. A goal is to establish a daily home-exerc ise program that includes cervical stretches, postural correction , core activation , and scapular stabilizat ion.IMAGIN G: I do not feel imaging (e.g of neck or head) is indicated at this time.Educa tion (verbal/ex periential ) provided to pt. 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 was able to slightly reduce muscle tension from 7/10 to 6/10.Recom mend follow-up with me in about 2 wks to continue to identify/a ddress contributi ng factors to pain, and for medication management . Follow-up with Dr. Xavier as she advises. Because of the mind-body connection of pain, pt. may benefit from seeing one of our clinical health psychologi sts for stress management , relaxation training, and to address other possible psychophys iologic factors contributi ng to the pain experience --pt. to consider.M ETHOCARBAM OL 500mg tabs (per Dr. Xavier): 2 tabs not really helpful, so pt. may try 3 tabs at bedtime. No Rx needed. The goal is to target as the pt. begins addressing the contributi ng factors to her pain. Education (verbal) provided on possible benefits and risks. Advised pt. that as contributi ng factors are addressed, a goal will be to minimize the use of medication . Discussed: If methocarba mol 750 mg not helpful, consider trial of cyclobenza shu (Flexeril) --e.g. 10mg tabs, 1/2 to 1 at bedtime for muscle tension; pt. to call is she desires to try.I spent considerab le time with the patient discussing past medical and personal histories, as well as performing a physical exam, which is documented in the electronic Health Record.Edu cation provided to pt. on diagnostic impression s. Education provided on some of the muscles implicated in the patient's pain.Educa tion provided on some of the contributi ng factors to the patient's pain.Educa tion provided on some of the treatment goals: address contributi ng factors, promote self-effic acy, minimize the need for medication s, as well as the need for passive therapies. Today greater than 50% of the 60 minute visit was spent counseling and coordinati ng care. This included a review of the diagnosis, contributi ng factors, medication s, including their possible benefits and side effects, home self-manag ement strategies and the limitation s and expectatio ns.FTR: S/C, ANS, RLX/Stress Mgmt,Sleep ,Pcg Chronic neck pain 615943 9077 107 M54.2 Symptomati cPresently constant Chronic te nsion-type headache 068283498 G44.229 Symptomati cPresently constant [id number] AMERICO HernandezT, CCTT [place] [address] [place] [address] 12/05/2018 11:02:45 12/05/2018 11:42:54 Myofascial pain 747573251 M79.11 Chronic neck pain 600443 3562 107 M54.2 Chronic te nsion-type headache 243858728 G44.229 [id number] AMERICO HernandezT, CCTT [place] [address] [place] [address] 12/15/2018 09:58:40 12/15/2018 11:27:18 Myofascial pain 201480352 M79.11 Chronic neck pain 747209 5908 107 M54.2 Chronic te nsion-type headache 419163592 G44.229 [id number] AMERICO HernandezT, CCTT [place] [address] [place] [address] 12/27/2018 11:10:06 12/27/2018 12:05:31 Myofascial pain 400194056 M79.11 Chronic neck pain 882023 4562 107 M54.2 Chronic te nsion-type headache 727944867 G44.229 Health Concerns Section Related Observation LastModified by Organization Detai ls LastModified Time None Recorded Concern Status LastModified by Organization Details LastModified Time None Recorded Advance Directives Directive None Recorded Payers Insurance Date Sequence Insurance Name Policy Number Policy Martinez Covered Member ID Martinez Member ID Guarantor Name 12/24/2018 1 [facility] [id number] Edna Wood [id number] Edna Wood Notes Date Note Type Note Provider Name and Address Organization Details Recorded Time 9 text/html Patient presents today for follow-up. They report jaw [...] is uncomfortable. ANICETO XAVIER BDS, [place] [address] [address], [place], [address], [facility] 09/30/2018 16:00:20 9 text/html HeadacheReported bypatient.Onset/Timin g:Onset yrs ago--no exchange engineer the yrs. Location:generalized; bilateral; frontal; temporal; base of head Quality:dull/aching/b oring;pressure; Throbs rarely. Severity:pain level 3-7/10; current pain 3/10; higher intensity: occasionally. 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 No injury hx. No hypermobility Location:occipital; posterior; no radiation to shoulders or arms. Quality:strong ache, gets stronger up in the occipital area Severity:pain level 3-7/10; current pain /10 Duration:constant Aggravating Factors:sleep, stress, activity Alleviating Factors:sleep; ice; quiet; massage; chiropractor (not seeing now)Notes:Head feels heavy R>L.Imaging:Neck xrays (per chiropractor) yrs ago: neck alignment issue.MEDS (current)Methocarbamo l: taking occasionally: no change in pain. No SE's. Edna is here for eval of her neck pain and headaches. Neck pain cont for years; chiro care. Advil 2tabs qd; weaned herself off. Headaches are usually in her temples, ache, intense. Muscle relaxant hasnt helped. 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 65 MPH; on or off.Sleep 2 hrs solid, 6-7 hrs. Interrupted.Caffeine: 16 oz/day. Pricila car[facility] 11/10/2018 10:57:05 9 text/html Overall the jaw is opening farther, though she [...] she is concerned about it. Lilo carrillo [facility] 12/07/2018 11:27:15 9 text/html Doing the chin nod work pretty consistently. Struggles with pillow use at home - towel roll feels ok at first but then gets tight. Low back has been bothering her lately too. Lilo carrillo [facility] 12/15/2018 13:32:52 9 text/html Continues to work on her sleeping position [...] head is too heavy. SHARRI Stark - [facility] 12/27/2018 19:13:59 OBGyn Episode No OBEpisode recorded.
== END 2025-01-02 12:54 | disposition home or self-care (01) ==
LOC: MAMMO 12:53
PROVIDERS: PCP Physician Assistant Medical; Visit Provider Physician Assistant
DX: Z12.31 Encounter for screening mammogram for malignant neoplasm of breast (principal); R92.333 Mammographic heterogeneous density, bilateral breasts
CPT/HCPCS: 77063; 77067